=== PATIENT | male | born 1930 | race Caucasian/White ===

== ENCOUNTER 2018-10-01 22:23 | Inpatient (IN) | payer MEDICARE, OTHER ==
[2018-10-01] MEDS ORDERED: Aspirin 81 mg CHEW TAB* 81 MG TAB.CHEW PO ONE (22:52)
[2018-10-01] MEDS ORDERED: fentaNYL* 50 MCG/ML 2 ML VIAL (100 MCG VIAL) IV ONE (22:52)
[2018-10-01] MEDS ORDERED: Nitro 2% OINT* (Nitroglycerin) 1 INCH/PAK PAK TOPICAL ONE (22:52)
--- NOTE | 2018-10-01 22:54 | ED ---
HPI Chest Pain - HPI Summary HPI Summary: Patient is a 88 y/o M presenting to ED with complaints of sudden onset and constant chest pain today, 10/01/18, just before 1900. He notes that exertion aggravates chest pain, rest completely alleviates Sx. He notes that he had some difficulty with his typical daily activities today and notes that he did not have this difficulty earlier this week. When chest pain onset today, he sat down and rested. However, chest pain persisted, which led to the patient coming to ED. Pain is still present, chest pain is described as diffuse and as a pressure. Family claims that the patient never had KS and has never had cardiac catheterization. PMHx of Parkinson's disease, AAA, pacemaker. He is a non-smoker , denies Hx of HTN and diabetes. He rates pain 9.5/10. On triage, nothing is noted to aggravate/alleviate Sx. Home medications and allergies are reviewed. - History of Current Complaint Chief Complaint: EDChestPainROMI Time Seen by Provider: 10/01/18 22:43 Hx Obtained From: Patient, Family/Paper Bundler Onset/Duration: Started Hours Ago, Still Present Timing: Constant, Lasting Hours Current Severity: Severe Pain Intensity: 10 Pain Scale Used: 0-10 Numeric Chest Pain Location: Diffuse Character: Pressure/Squeezing Aggravating Factor(s): Nothing Alleviating Factor(s): Nothing Associated Signs and Symptoms: Positive: Chest Pain. Negative: Fever - on vitals, temp is 98.3 F - Allergy/Home Medications Allergies/Adverse Reactions: Allergies Allergy/AdvReac Type Severity Reaction Status Date / Time No Known Allergies Allergy Verified 10/29/12 16:24 Home Medications: Home Medications Amantadine CAP* [Symmetrel CAP*] 100 mg PO 0800,1500 10/01/18 [History Confirmed 10/02/18] Carbidopa/Levodop CR 50/200(*) [Sinemet CR 50/200(*)] 1 tab.cr PO 199910/01/18 [History Confirmed 10/02/18] Docusate Sodium [Colace] 100 mg PO DAILY 10/01/18 [History Confirmed 10/01/18] Gabapentin CAP(*) [Neurontin 300 CAP(*)] 300 mg PO 0730,1400,2100 10/01/18 [ History Confirmed 10/02/18] Metoprolol Tartrate [Lopressor] 50 mg PO BID 10/01/18 [History Confirmed ] Acetaminophen [Tylenol] 650 mg PO 2100 10/02/18 [History Confirmed 10/02/18] PMH/Surg Hx/FS Hx/Imm Hx Cardiovascular History: Reports: Hx Aneurysm - AAA, Hx Pacemaker/ICD Neurological History: Reports: Other Neuro Impairments/Disorders - Parkinson's - Immunization History Date of Tetanus Vaccine: UNKNOWN Infectious Disease History: No Infectious Disease History: Denies: Traveled Outside the [place] in Last 30 Days - Family History Known Family History: Positive: Diabetes - Social History Alcohol Use: None Substance Use Type: Reports: None Smoking Status (MU): Former Smoker Review of Systems Negative: Fever - on vitals, temp is 98.3 F Positive: Chest Pain All Other Systems Reviewed And Are Negative: Yes Physical Exam - Summary Physical Exam Summary: Appearance: Well-appearing, Well-nourished, lying in bed comfortably, no acute distress Skin: Warm, dry, no obvious rash; pacemaker noted Eyes: sclera anicteric, no conjunctival pallor ENT: mucous membranes moist, pharynx appears normal Neck: Supple, nontender Respiratory: Clear to auscultation, no signs of respiratory distress Cardiovascular: Normal S1, S2. No murmurs. Normal distal pulses in tibial and radial bilaterally. Abdomen: Soft, nontender, normal active bowel sounds present Musculoskeletal: Normal, Strength/ROM Intact, no edema. Neurological: A&Ox3, awake and alert, mentation is normal, speech is fluent and appropriate Psychiatric: affect is normal, does not appear anxious or depressed Triage Information Reviewed: Yes Vital Signs On Initial Exam: Initial Vitals Temp Pulse Resp BP Pulse Ox 98.3 F 82 24 163/97 90 10/01/18 22:25 10/01/18 22:25 10/01/18 22:25 10/01/18 22:25 10/01/18 22:25 Vital Signs Reviewed: Yes Diagnostics - Vital Signs Vital Signs Temp Pulse Resp BP Pulse Ox 10/01/18 22:25 98.3 F 82 24 163/97 90 - Laboratory Result Diagrams: 10/04/18 06:31 10/04/18 06:31 Lab Statement: Any lab studies that have been ordered have been reviewed, and results considered in the medical decision making process. - Radiology CXR Radiology Interpretation Completed By: ED Physician Summary of Radiographic Findings: CXR showed no acute process, pending official report. - EKG 2335 Cardiac Rate: Other Rate - atrial paced rhythm with rate of 82 BPM Summary of EKG Findings: EKG showed atrial paced rhythm with rate of 82 BPM. Re-Evaluation - Re-Evaluation First Eval Re-Evaluation Time: 23:44 Comment: Aware of trop of 0.83. Second Eval Re-Evaluation Time: 00:59 Comment: Aware of trop of 3.74 Chest Pain Course/Dx - Course Course Of Treatment: Patient is a 88 y/o M presenting to ED with complaints of sudden onset and constant chest pain today, 10/01/18, just before 1900. He notes that exertion aggravates chest pain, rest completely alleviates Sx. He notes that he had some difficulty with his typical daily activities today and notes that he did not have this difficulty earlier this week. When chest pain onset today, he sat down and rested. However, chest pain persisted, which led to the patient coming to ED. Pain is still present, chest pain is described as diffuse and as a pressure. Family claims that the patient never had KS and has never had cardiac catheterization. PMHx of Parkinson's disease, AAA, pacemaker. He is a non-smoker, denies Hx of HTN and diabetes. EKG showed atrial paced rhythm with rate of 82 BPM. CXR showed no acute process. Labs showed WBC 11, MCV 100, MCH 33, RDW 16, absolute neuts 9.5, BUN 28, creatinine 1.19, BUN/creatinine ratio 23.5, glucose 137, ALT < 3. First trop 0.83, second 3.74. During ED course, patient received nitro paste 1 inch, ASA 324 ,g PO, fentanyl 50 mcg IV, heparin vial, 4000 units, heparin drip, [id number] units, 20 mls/hr. 0112 - Patient 's case was discussed with Dr. Palencia, Dr. Palencia asks for boom worker consult and will consult on patient. 0118 - Dr. Foster, boom worker, was consulted, he recommends homicide squad captain consult. 0141 - patient case discussed with Dr. Oneill, Dr. Oneill will send cath team and bring patient to laborer steel handling. - Diagnoses Provider Diagnoses: NSTEMI (non-ST elevated myocardial infarction) - Provider Notifications Discussed Care Of Patient With: Sejal Palencia Time Discussed With Above Provider: 01:12 Instructed by Provider To: Other - 0112 - Patient's case was discussed with Dr. Palencia, Dr. Palencia asks for boom worker consult and will consult on patient. 0118 - Dr. Foster, boom worker, was consulted, he recommends homicide squad captain consult. 0141 - patient case discussed with Dr. Oneill, Dr. Oneill will send cath team and bring patient to laborer steel handling. - Critical Care Time Critical Care Time: 75-104 min Discharge - Sign-Out/Discharge Documenting (check all that apply): Patient Departure - admit Patient Received Moderate/Deep Sedation with Procedure: No - Discharge Plan Condition: Guarded Disposition: ADMITTED TO [facility] - Billing Disposition and Condition Condition: GUARDED Disposition: Admitted to [facility] - Attestation Statements Document Initiated by Gus: Yes Documenting Scribe: SONAM ESPINO Provider For Whom Gus is Documenting (Include Credential): REYMUNDO WANG MD Scribe Attestation: SONAM Acuna, scribed for REYMUNDO WANG MD on 10/05/18 at 0755. Scribe Documentation Reviewed: Yes Provider Attestation: The documentation as recorded by the SONAM casarez accurately reflects the service I personally performed and the decisions made by me, REYMUNDO WANG MD Status of Scribe Document: Viewed
[2018-10-01 23:24] LABS: ABS Monocytes 0.4 10^3/ul (0-0.8); ABS Neutrophils 9.5 10^3/ul (1.5-7.7); Eosinophil % 0.4 %; Hematocrit 47 % (42-52); Hemoglobin 15.4 g/dL (14.0-18.0); Lymphocyte % 8.7 %; Mean Corpuscular HGB Conc 33 g/dL (31-36); Mean Corpuscular Hemoglobin 33 pg (27-31); Mean Corpuscular Volume 100 fL (80-94); Mean Platelet Volume 7.7 fL (7.4-10.4); Platelet Count 152 10^3/uL (150-450); Red Cell Distribution Width 16 % (10-15)
[2018-10-01 23:36] LABS: ALT < 3 U/L (7-52); AST 25 U/L (13-39); Albumin/Globulin Ratio 1.2 (1-3); Alkaline Phosphatase 90 U/L (34-104); Anion Gap 9 mmol/L (2-11); BUN/Creatinine Ratio 23.5 (8-20); Blood Urea Nitrogen 28 mg/dL (6-24); CO2 Carbon Dioxide 28 mmol/L (22-32); Calcium 9.6 mg/dL (8.6-10.3); Chloride 106 mmol/L (101-111); EGFR African American 70.1 (>60); Globulin 3.4 g/dL (2-4); Glucose 137 mg/dL (70-100); Potassium 4.4 mmol/L (3.5-5.0); Sodium 143 mmol/L (135-145); Total Protein 7.4 g/dL (6.4-8.9)
[2018-10-01 23:44] LABS: Troponin I 0.83 ng/mL (<0.04)
[2018-10-01] MEDS ORDERED: Heparin DRIP 25,000 UNITS(*) 25,000 UNITS/500 ML BAG IV SCH (23:45)
[2018-10-01] MEDS ORDERED: nitroGLYCERIN DRIP* 25,000 MCG/250 ML BTL IV ONE (23:52)
[2018-10-02] MEDS ORDERED: Heparin VIAL(*) 5000 UNITS/ML VIAL (FIVE THOUSAND) IV SCH (00:15)
[2018-10-02] MEDS: fentaNYL* 50 MCG/ML 2 ML VIAL (100 MCG VIAL) IV PRN ×2 (00:40→06:13)
[2018-10-02 00:56] LABS: Troponin I 3.74 ng/mL (<0.04)
[2018-10-02] MEDS ORDERED: LORazepam TAB(*) 0.5 MG PO PRN (01:45)
[2018-10-02] MEDS ORDERED: NS 0.9% 1000 ML** 1,000 ML IV SCH ×2 (02:00→04:15)
[2018-10-02] MEDS ORDERED: nitroGLYCERIN DRIP* 25,000 MCG/250 ML BTL ONE (02:13)
[2018-10-02] MEDS ORDERED: Lidocaine 1% INJ* 10 MG/ML 30 ML SDV ONE (02:13)
[2018-10-02] MEDS ORDERED: Heparin 2 UNITS/ML IVPREMIX* 3,000 UNIT/1,500 ML BAG IV ONE (02:14)
[2018-10-02] MEDS ORDERED: Heparin(*) 1000 UNIT/ML 10 ML VIAL CATH LAB IV ONE (02:14)
[2018-10-02] MEDS ORDERED: Iodixanol 320 (CONTRAST) 100 ML SDV ONE ×2 (02:15→03:46)
[2018-10-02] MEDS ORDERED: Midazolam* 1 MG/ML 5 ML VIAL (5 MG) ONE (02:25)
[2018-10-02] MEDS ORDERED: VERAPAMIL 2.5 MG/ML 2 ML VIAL ** 5 mg/2 ml ONE (02:25)
[2018-10-02] MEDS ORDERED: fentaNYL* 50 MCG/ML 2 ML VIAL (100 MCG VIAL) ONE (02:25)
[2018-10-02 02:33] LABS: Cholesterol 128 mg/dL; HDL Cholesterol 29.6 mg/dL; LDL Cholesterol 69 mg/dL; Triglycerides 148 mg/dL
[2018-10-02] MEDS ORDERED: Bivalirudin(*) 250 MG VIAL ONE (03:24)
[2018-10-02] MEDS ORDERED: Ticagrelor* 90 MG TAB PO ONE (03:24)
[2018-10-02] MEDS ORDERED: Nitroglycerin TAB 0.4 MG* 0.4 MG TAB SL PRN (04:07)
[2018-10-02] MEDS ORDERED: Atorvastatin* 80 MG TAB PO ONE ×2 (04:19→21:00)
--- NOTE | 2018-10-02 05:42 | HP ---
CC: Chhaya Loyd NP * HISTORY AND PHYSICAL: DATE OF ADMISSION: 10/02/18 PRIMARY CARE PROVIDER: Chhaya Loyd NP. CHIEF COMPLAINT: Chest pain. HISTORY OF PRESENT ILLNESS: Mr. Smith is an 88-year-old vague historian who states that he developed chest pressure beginning initially he stated at around 4 p.m. but his daughter corrected him and stated that he told her chest pain began shortly before she arrived to his house which was around 6:45 p.m. The patient states that the chest pain is still present. He again described this as a pressure sensation in the middle of his chest. He states typically he will get chest discomfort with exertion; however, if he sits down, the pain will go away. At this time, the pain did not go away. The patient because of the ongoing pain and lack of relief with different measures tried at home presented to the emergency room for evaluation. The patient denies any associated shortness of breath or diaphoresis, and there was no radiation of the pain. The pain is still present between a 7 and 8/10 despite being on a nitroglycerin infusion. PAST MEDICAL HISTORY: 1. Hypertension. 2. Parkinson disease. 3. Peripheral neuropathy. 4. Anxiety. 5. Hypertension. PAST SURGICAL HISTORY: 1. Bilateral cataract extraction. 2. Right carpal tunnel release. 3. Left inguinal hernia repair. 4. Partial colectomy for a history of colon cancer. 5. Pacemaker insertion. MEDICATIONS: 1. Ativan 0.5 mg p.o. q.h.s. p.r.n. anxiety. 2. Tylenol 650 mg p.o. at 2100. 3. Gabapentin 300 mg p.o. 3 times daily. 4. Amantadine 100 mg p.o. twice daily. 5. Carbidopa/levodopa CR 50/200 one tab p.o. at 2000. 6. Sinemet 25/100 two tabs p.o. at 0930, 1330, and 1730. 7. Colace 100 mg p.o. daily. 8. Metoprolol tartrate 50 mg p.o. twice daily. 9. Nitroglycerin patch applied topically daily. ALLERGIES: No known drug allergies. FAMILY HISTORY: Mom had a history of diabetes. Dad's history is unknown. SOCIAL HISTORY: The patient is a former smoker of approximately one-half pack per day for 15 years, he quit in 1974. He does not drink alcohol. He worked at an [employer] plant. He is . He has 5 children. His daughter Josephine is listed as his healthcare proxy. REVIEW OF SYSTEMS: A complete 11-system review of systems is obtained. Pertinent positives and negatives are as per HPI. In addition, the patient does state that he has had cold symptoms over the last couple of weeks. He has had a cough but no shortness of breath. He denies any hematochezia or hematuria. He does have chronic double vision. The rest of the review of systems is negative. PHYSICAL EXAMINATION GENERAL: The patient is a well-developed, elderly male seen sitting up in stretcher, appearing to be in no acute distress. VITAL SIGNS: Blood pressure 134/75, pulse 82, respirations 24, temp 98.3, O2 sat 93% on room air. HEENT: Pupils are equal. There is evidence of prior cataract extraction. Extraocular muscles are intact. Oropharynx is clear. Oral mucosa is moist. There is no submandibular, cervical, or supraclavicular adenopathy. Thyroid is not enlarged. No thyroid nodules noted. PULMONARY: Lungs are clear to auscultation bilaterally. CARDIAC: Normal S1 and S2. Regular rate and rhythm. I do not appreciate any murmurs. There is 1+ bilateral lower extremity pitting edema. ABDOMEN: Bowel sounds present. Abdomen is soft, nontender, nondistended. MUSCULOSKELETAL: There is no cyanosis or clubbing of the digits. The patient needs help sitting up in the bed. Skin is warm and dry. There are no rashes. NEURO: Cranial nerves II through XII appear to be grossly intact, though I do question left droop at the corner of the mouth. The patient's daughter states, however, he looks at his baseline. Strength is 5/5 and symmetric to both upper and lower extremities bilaterally. Sensation is intact to light touch throughout. PSYCH: The patient is alert. He is oriented x3. He is a poor historian. DIAGNOSTIC STUDIES/LAB DATA: WBC 11.0, hemoglobin 15.4, hematocrit 47, platelets 152. PTT 36. Sodium 143, potassium 4.4, chloride 106, CO2 28, BUN 28 , creatinine 1.19, glucose 137, calcium 9.6. Bilirubin 0.7, AST 25, ALT less than 3, alk phos 90. Troponin 0.83 up to 3.74. Albumin 4.0. EKG reveals a paced rhythm. Chest x-ray to my interpretation reveals possible patchy infiltrates at the bases bilaterally. ASSESSMENT AND PLAN: Mr. Smith is an 88-year-old male with a history of hypertension and Parkinson disease as well as peripheral neuropathy, who presented to the emergency room with complaints of exertional chest pain that did not relieve with rest like it typically does, who is being admitted for a non-ST elevation myocardial infarction. 1. Non-ST elevation myocardial infarction. At this point, the patient continues to have ongoing chest pressure. He rates it as 7/10 despite being on a nitroglycerin infusion. The patient is also on a heparin drip started by the ER provider. He has received aspirin 324 mg, fentanyl, and nitroglycerin. Cardiology was contacted by Dr. Ray in the ER. Dr. Sae Foster recommended that Dr. Oneill be contacted for possible intervention this evening. Dr. Oneill has since been contacted by Dr. Ray. Dr. Oneill is calling in the cardiac catheterization team to pursue intervention this evening. The patient will continue with aspirin 81 mg daily, and I am going to add Lipitor 80 mg q.h.s. He is already on metoprolol 50 mg twice daily. We will be obtaining a transthoracic echocardiogram on 10/03/18. He may benefit from low-dose HUMBERTO inhibitor. I will add on a lipid profile to labs obtained in the ER, and I will add hemoglobin A1c. We will await further recommendations from Dr. Oneill when he arrives. 2. Hypertension. The patient's blood pressure has been under decent control on the nitroglycerin infusion; however, when he arrived, his blood pressure was moderately elevated. He will need adjustments in his antihypertensive regimen post catheterization. 3. Parkinson disease. The patient will continue on his usual regimen of amantadine twice daily, Sinemet 4 times daily including a long-acting dose at bedtime. 4. Peripheral neuropathy. Continue gabapentin. 5. Stage 3 chronic kidney disease. The patient's creatinine is slightly elevated at 1.19. This is appearing to be baseline. Labs dating back to 2014 revealed his creatinine to be elevated in this range. 6. DVT prophylaxis: According to the adult thrombosis prophylaxis risk factor assessment guide, the patient has a total risk factor score of 6 making him the highest risk. He is on a heparin drip and this will act as his DVT prophylaxis. 7. Code status is DNR. The patient understands that he will need to rescind his DNR to pursue cardiac catheterization. Of note, the patient is a Yarsanism. This information has been relayed to Dr. Oneill. TIME SPENT: 65 minutes was spent admitting this patient. [id number]/CPS #: [id number] [facility]
[2018-10-02 06:43] LABS: ABS Eosinophils 0.1 10^3/ul (0-0.6); ABS Lymphocytes 1.3 10^3/ul (1.0-4.8); ABS Monocytes 0.7 10^3/ul (0-0.8); ABS Neutrophils 7.6 10^3/ul (1.5-7.7); Eosinophil % 0.6 %; Hematocrit 43 % (42-52); Hemoglobin 14.7 g/dL (14.0-18.0); Lymphocyte % 13.8 %; Mean Corpuscular HGB Conc 34 g/dL (31-36); Mean Corpuscular Hemoglobin 34 pg (27-31); Mean Corpuscular Volume 98 fL (80-94); Nucleated Red Blood Cells % 0.1; Platelet Count 155 10^3/uL (150-450); Red Blood Count 4.39 10^6 /uL (4.18-5.48); Red Cell Distribution Width 16 % (10-15); White Blood Count 9.7 10^3/uL (3.5-10.8)
[2018-10-02] MEDS: Nitroglycerin 0.3 MG/HR PATCH* (7.5 MG) TRANSDERM SCH ×2 (06:52→08:30)
[2018-10-02 07:06] LABS: ALT 6 U/L (7-52); AST 193 U/L (13-39); Albumin 3.7 g/dL (3.2-5.2); Albumin/Globulin Ratio 1.2 (1-3); Alkaline Phosphatase 85 U/L (34-104); Anion Gap 9 mmol/L (2-11); BUN/Creatinine Ratio 25.8 (8-20); Blood Urea Nitrogen 24 mg/dL (6-24); CO2 Carbon Dioxide 28 mmol/L (22-32); Calcium 9.3 mg/dL (8.6-10.3); Chloride 106 mmol/L (101-111); EGFR African American 93.2 (>60); Globulin 3.2 g/dL (2-4); Glucose 116 mg/dL (70-100); Potassium 3.8 mmol/L (3.5-5.0); Sodium 143 mmol/L (135-145); Total Protein 6.9 g/dL (6.4-8.9)
[2018-10-02 07:10] LABS: CKMB ng/mL > 304.0 ng/mL (0.6-6.3); Troponin I > 79.00 ng/mL (<0.04)
[2018-10-02] MEDS: Metoprolol Tartrate TAB* 50 mg PO SCH ×2 (08:30→21:09)
[2018-10-02] MEDS: Gabapentin CAP(*) 300 MG PO SCH ×2 (08:30→21:07)
[2018-10-02] MEDS: Docusate CAP* 100 MG PO SCH (08:30)
[2018-10-02] MEDS: Aspirin 81 mg CHEW TAB* 81 MG TAB.CHEW PO SCH (08:30)
[2018-10-02] MEDS: Amantadine CAP* 100 MG PO SCH ×2 (08:31→17:09)
[2018-10-02] MEDS: Carbidopa/Levodop 25/100 MG TAB(*) PO SCH ×3 (08:32→17:09)
[2018-10-02 08:51] LABS: Creatine Kinase 2763 U/L (10-223)
--- NOTE | 2018-10-02 09:04 | PN ---
Cardiology Progress Note Date of Service: 10/02/18 attention coders please do not bill for this encounter Limited bedside echo Dr. Oneill present shows mild LV systolic dysfunction with posterior predominant WMA Full echo 10/03/2018
[2018-10-02 09:10] LABS: CKMB ng/mL 102.6 ng/mL (0.6-6.3)
[2018-10-02 09:14] LABS: Creatine Kinase 318 U/L (10-223)
[2018-10-02 09:14] LABS: Creatine Kinase 801 U/L (10-223)
[2018-10-02 09:18] LABS: CKMB ng/mL 31.3 ng/mL (0.6-6.3)
--- NOTE | 2018-10-02 09:58 | PN ---
Subjective Date of Service: 10/02/18 Interval History: seen this morning in ICU post cardiac cath secondary to Non-Q-MT with elevated troponin and chest pain. S/p bare-metal stent to his Left circumflex. currently chest pain free, but complains of chest wall tenderness left sided. BP was elevated 211/100 earlier and was started on lopressor 50mg bid and captopril 6.25 tid. Brilinta on board. he denies any headache , no abdominal pain Past Medical History: Unchanged from Admission Objective Active Medications: Acetaminophen (Tylenol Tab*) 650 mg PO 2100 [facility] Amantadine HCl (Symmetrel Cap*) 100 mg PO 0800,1500 [facility] Last Admin: 10/02/18 08:31 Dose: 100 mg Aspirin (Aspirin 81 Mg Chew Tab*) 81 mg PO DAILY [facility] Last Admin: 10/02/18 08:30 Dose: 81 mg Atorvastatin Calcium (Lipitor*) 80 mg PO 1700 [facility] Captopril (Capoten Tab*) 6.25 mg PO TID [facility] Carbidopa/Levodopa (Sinemet 25/100 Tab(*)) 2 tab PO 0930,1330,1730 [facility] Last Admin: 10/02/18 08:32 Dose: 2 tab Carbidopa/Levodopa (Sinemet Cr 50/200(*)) 1 tab.cr PO 2000 [facility] Docusate Sodium (Colace Cap*) 100 mg PO DAILY [facility] Last Admin: 10/02/18 08:30 Dose: 100 mg Fentanyl Citrate (Fentanyl*) 50 mcg IV Q1H PRN PRN Reason: PAIN Last Admin: 10/02/18 06:13 Dose: 50 mcg Gabapentin (Neurontin Cap(*)) 300 mg PO 0730,2100 [facility] Last Admin: 10/02/18 08:30 Dose: 300 mg Heparin Sodium (Porcine) (Heparin Vial(*)) 0 units IV .PER PROTOCOL [facility] Last Admin: 10/02/18 00:47 Dose: 4,000 units Sodium Chloride (Ns 0.9% 1000 Ml) 1,000 mls @ 75 mls/hr IV PER RATE [facility] Last Admin: 10/02/18 04:43 Dose: 75 mls/hr Sodium Chloride (Ns 0.9% 1000 Ml) 1,000 mls @ 100 mls/hr IV PER RATE [facility] Stop: 10/02/18 14:14 Lorazepam (Ativan Tab(*)) 0.5 mg PO BEDTIME PRN PRN Reason: ANXIETY Metoprolol Tartrate (Lopressor Tab*) 50 mg PO BID [facility] Last Admin: 10/02/18 08:30 Dose: 50 mg Nitroglycerin (Nitroglycerin 7.5 Mg Patch*) 1 patch TRANSDERM DAILY [facility] Last Admin: 10/02/18 08:30 Dose: Not Given Nitroglycerin (Nitroglycerin Tab 0.4 Mg*) 0.4 mg SL Q5M PRN PRN Reason: ANGINA Ticagrelor (Brilinta*) 90 mg PO BID [facility] Vital Signs - 8 hr 10/02/18 10/02/18 10/02/18 02:00 02:06 02:21 Temperature Pulse Rate 72 67 77 Respiratory 16 14 23 Rate Blood Pressure 111/72 129/66 (mmHg) O2 Sat by Pulse 92 93 93 Oximetry 10/02/18 10/02/18 10/02/18 02:36 04:24 04:26 Temperature Pulse Rate 81 92 Respiratory 22 Rate Blood Pressure 115/71 144/81 (mmHg) O2 Sat by Pulse 92 94 Oximetry 10/02/18 10/02/18 10/02/18 04:31 04:36 04:46 Temperature 98.9 F Pulse Rate 83 79 Respiratory 23 21 17 Rate Blood Pressure 158/100 158/100 126/75 (mmHg) O2 Sat by Pulse 98 94 Oximetry 10/02/18 10/02/18 10/02/18 05:00 05:01 05:17 Temperature Pulse Rate 80 85 86 Respiratory 18 20 17 Rate Blood Pressure 145/89 141/75 (mmHg) O2 Sat by Pulse 94 93 93 Oximetry 10/02/18 10/02/18 10/02/18 05:31 05:46 06:00 Temperature Pulse Rate 81 92 83 Respiratory 18 20 19 Rate Blood Pressure 121/83 132/79 127/80 (mmHg) O2 Sat by Pulse 93 92 92 Oximetry 10/02/18 10/02/18 10/02/18 06:06 06:11 06:13 Temperature Pulse Rate 85 87 Respiratory 17 18 22 Rate Blood Pressure 185/90 172/93 (mmHg) O2 Sat by Pulse 91 90 Oximetry 10/02/18 10/02/18 10/02/18 06:30 07:00 07:02 Temperature Pulse Rate 85 90 96 Respiratory 17 17 18 Rate Blood Pressure 165/90 211/100 (mmHg) O2 Sat by Pulse 91 98 98 Oximetry 10/02/18 10/02/18 10/02/18 07:04 07:28 07:37 Temperature 99.9 F Pulse Rate 90 Respiratory 21 19 Rate Blood Pressure 150/86 (mmHg) O2 Sat by Pulse 97 Oximetry 10/02/18 10/02/18 10/02/18 07:41 08:00 08:01 Temperature Pulse Rate 95 95 Respiratory 20 17 16 Rate Blood Pressure 157/92 (mmHg) O2 Sat by Pulse 92 92 Oximetry Oxygen Devices in Use Now: Nasal Cannula Appearance: awake. alert. no distress. Eyes: No Scleral Icterus, - Ears/Nose/Mouth/Throat: Clear Oropharnyx, Mucous Membranes Moist Neck: NL Appearance and Movements; NL JVP, Trachea Midline Respiratory: Symmetrical Chest Expansion and Respiratory Effort, - - bibasilar crackles. transmitted upper airway breath sound cleared with coughing Cardiovascular: NL Sounds; No Murmurs; No JVD, No Edema Abdominal: NL Sounds; No Tenderness; No Distention Extremities: No Edema Neurological: Alert and Oriented x 3, NL Muscle Strength and Tone Result Diagrams: 10/02/18 06:19 10/02/18 06:19 Microbiology and Other Data: Microbiology 10/02/18 04:40 Nasal Screen MRSA (PCR) - Final Nasal Mrsa Not Detected Assess/Plan/Problems-Billing Assessment: 88 y/o male known history of AAA (patient opted to stop following and declined surgery); Parkinson, Pacemaker, admitted for chest pain and NQMI s/p bare-metal stent to his left circumflex. - Patient Problems (1) Non-ST elevated myocardial infarction (non-STEMI) Current Visit: Yes Status: Acute Code(s): I21.4 - NON-ST ELEVATION (NSTEMI) MYOCARDIAL INFARCTION SNOMED Code(s): 12911282 Comment: - s/p cardiac cath 10/01/18 with baremetal stent to left circumflex - Offical cath report pending - on lopressor 50 mg bid, brilinta 90 mg bid, Aspirin 81 mg daily, lipitor 80 mg HS, captopril 6.25 mg tid (2) CAD (coronary artery disease) Current Visit: Yes Status: Acute Code(s): I25.10 - ATHSCL HEART DISEASE OF [place] CORONARY ARTERY W/O ANG PCTRS SNOMED Code(s): 48153914 Comment: - s/p cardiac cath 10/01/18 with baremetal stent to left circumflex - Offical cath report pending - on lopressor 50 mg bid, brilinta 90 mg bid, Aspirin 81 mg daily, lipitor 80 mg HS, captopril 6.25 mg tid- s/p cardiac cath 10/01/18 with baremetal stent to his left circumflex (3) Parkinson disease Current Visit: Yes Status: Acute Code(s): G20 - PARKINSON'S DISEASE SNOMED Code(s): 72804175 Comment: - continue amantadine 100 mg bid - Continue sinemet 25/100 2 tabs tid and 1 tab at bedtime (4) AAA (abdominal aortic aneurysm) Current Visit: Yes Status: Acute Code(s): I71.4 - ABDOMINAL AORTIC ANEURYSM , WITHOUT RUPTURE SNOMED Code(s): 481274536 Comment: - Last available scan from [facility] reviewed > 6cm from 2017 - He was scheduled for intravascular repair, however, the patient elected not to pursue repair and declined further imaging as he does not want it to be repaired - I revisisted with him this morning the risk of rupture and sudden and he is fully aware and response was "it goes when it goes, I am 88 year old...I had a latasha who had it done and did not make it..." Will defer any further work up (5) Hypertension Current Visit: Yes Status: Acute Code(s): I10 - ESSENTIAL (PRIMARY) HYPERTENSION SNOMED Code(s): 47035786 Comment: - BP was as high as 211/100. - Aggressive BP control required espescially with his NQMI and AAA - Cardiology already initiated lopressor 50 mg bid and captopril 6.25 mg tid. - Will reassess early afternoon if remains above 140 mmHg SBP or above 90 mmHg DBP will titrate either metoprolol or captopril pending his pulse at that time (6) DVT prophylaxis Current Visit: Yes Status: Acute Code(s): Z29.9 - ENCOUNTER FOR PROPHYLACTIC MEASURES, UNSPECIFIED SNOMED Code(s): 820983630 Comment: - SCD, heparin SQ once off the drip
[2018-10-02] MEDS: Captopril TAB* 12.5 MG PO SCH ×3 (10:16→21:07)
[2018-10-02] MEDS ORDERED: oxyCODONE TAB* 5 MG TAB PO PRN (10:50)
--- NOTE | 2018-10-02 11:48 | CATH ---
CC: Chhaya Loyd NP, [facility] in [place], [place]; Anthony Alejandre, cardiac nurse practitioner, at the Department of Cardiology at [facility] CARDIAC CATHETERIZATION INTERVENTIONAL REPORT: DATE OF PROCEDURE: 10/02/18 FAMILY NURSE PRACTITIONER: Chhaya Loyd NP CARDIAC NURSE PRACTITIONER: Anthony Alejandre. INDICATIONS FOR PROCEDURE: The patient with ongoing chest discomfort with rising troponins, assess coronary anatomy with acute coronary syndrome for possibility of intervention. PROCEDURE: Coronary arteriography and balloon angioplasty and placement of a 2.75 x 20 mm Rebel bare metal stent in proximal to mid circumflex artery, post dilated to 2.85 - 2.9 mm, performed via right radial artery approach. CONSENT: The patient was interviewed and examined in the emergency room with family present. An extensive discussion was had with the emergency room physician in addition to Dr. Sejal Palencia who is the hospitalist taking care of the patient as well as the patient and the family. The patient is a Jehovah' s witness and stated that he would not take blood, but according to the family he does take other blood products such as platelets. He is adamant that he will not take any transfusions. He also has a DNR status that Dr. Ray, the emergency room physician had discussed with them and they initially felt they would reverse it for the procedure. I explained that we need to reverse it for more than the procedure, but clearly during the whole hospital course so that we could take care of him properly should any complications develop. They understood this and had a more of a discussion and decided that they would rescind the DNR status at this point. He was made a full code. The patient understood that we would be doing all efforts to help him if any significant issues arise. The approach utilized. The right radial artery was assessed by ultrasound in the pharmaceutical laboratory technician and felt to be acceptable as an approach given the size of it. As such, the approach attempted was from the right radial artery. The precardiac catheterization laboratory results: Hemoglobin and hematocrit of 15.4 and 47 with a platelet count of 152,000. BUN and creatinine is 28 and 1.1. Sodium 143, potassium 4.4, chloride 106, bicarb 28, troponin was 3.74. EQUIPMENT UTILIZED FOR THE CASE: 1. Right radial artery sheath was a 6-Turkish slender glide sheath. 2. The diagnostic guidewires utilized were both a Barnhart 260 length curve and a Wholey wire 145 cm length. 3. Diagnostic coronary catheter was a 5-Turkish TIG4 catheter. 4. The guiding catheter utilized was a VL3.5 curve 6-Turkish guide catheter. 5. The interventional wire was a 190 cm length BMW guidewire. 6. An initial balloon angioplasty catheter - was a 2.5 x 15 mm Long Emerge balloon and the stent utilized was a 2.75 x 20 mm Rebel bare-metal stent. 7. Post stent deployment balloon inflation catheter - was a 2.75 x 12 mm long NC Emerge balloon. 8. The closure device utilized was a Vasc Band by [employer]. MEDICATIONS GIVEN DURING THE PROCEDURE: In the emergency room, the patient had received 4000 units of heparin intravenously and a heparin drip had already been on for at least an hour prior to coming to the catheterization laboratory. A right radial artery cocktail was utilized with 300 mcg of nitroglycerin and 3 mg of verapamil. 1% lidocaine was used locally and the patient received Brilinta 180 mg orally. The patient was also on a nitroglycerin drip as well from the emergency room (he had also received several medications for pain management, please refer to the emergency room records for this). PROCEDURE: The patient was brought to the cardiovascular laboratory where a formal timeout was performed. He was prepped and draped in the usual sterile fashion under ultrasound guidance. The right radial artery was cannulated and the guidewire was placed and the sheath was placed. Of note, a Wholey wire was utilized to traverse the forearm at the elbow area and of note there was found to be marked tortuosity of the right subclavian artery into the innominate artery. Of note, it was difficult negotiating this, but eventually the Wholey wire negotiated it and we were able to advance to TIG catheter. Of note, in order to cannulate the coronary arteries intermittently, the guidewire was kept within the diagnostic catheter in order to avoid any kinking of the artery. Following this, the decision was made to attempt intervention into the circumflex artery. This existing diagnostic catheter was exchanged for the guide catheter. Of note, once again given the tortuosity, it was somewhat difficult and the catheter was advanced with extreme caution with the tortuosity with the wire kept in place and eventually straightening out to some degree the artery. The catheter was able to be placed in an excellent position with a guide catheter support in the left main. Following this, the guidewire was advanced down the circumflex artery and balloon angioplasty was performed followed by delivery of the sent. Post deployment, balloon inflations were made with a 2.75 x 12 mm long NC Emerge balloon dilated to as high as 26 atmospheres. Given the significant tortuosity with difficulty negotiating catheters, a decision was made not to perform left heart catheterization, but perform an echocardiogram for overall LV function. Following this, the artery was assessed and the wires were removed and the catheter was removed and the sheath was removed and hemostasis was obtained with a Vasc Band. The reverse Barbeau was a B. The total contrast used was a 150 cc Visipaque dye. The radiation exposure included 22 minutes of fluoro time. The air kerma radiation was 2671 mGy. The DAP radiation was 16,132 microgray/m2. RESULTS: CORONARY ARTERIOGRAPHY: A. Left coronary artery: 1. Left main - of note the ostium of the left main had a 10% to 15% narrowing noted. The distal left main had a 10% narrowing noted. 2. Left anterior descending artery - left anterior descending artery supplied a high first diagonal branch, followed by a mid-diagonal branch. The LAD itself had calcification seen within the proximal portion which did extended back into the distal left main. The proximal LAD itself in its worst view had an area of 35% to 40% narrowing. The first diagonal branch had a proximal long area of 50% to 55% narrowing noted. The continuation of the LAD had mild to moderate disease in its mid portion with RUSTY-3 flow. The mid diagonal branch had mild luminal irregularities within it as well, but RUSTY-3 flow was noted. 3. Circumflex artery - a nondominant vessel supplying a small caliber first obtuse marginal branch, thread-like in nature, traversing a small area of myocardium. Following this was a critical dissected 95% to 99% lesion seen with RUSTY-2.5 to 3 flow. This supplied a low-lying obtuse marginal branch with a superior branch, which was thread-like in nature followed by bifurcation in its distal portion. At that distal point, the artery is clearly extremely small in caliber. B. Right coronary artery - a dominant vessel supplying the PDA and 2 posterior left ventricular branches. There was mild luminal irregularity seen in the proximal portion. The PDA itself trifurcated in its distal portion to supply blood flow to the apical region of the left ventricle and the apical low- posterolateral region. Of note, the PDA itself had mild distal disease noted with areas of luminal reduction proximally 40% and 35%. INTERVENTION INTO PROXIMAL TO MID CIRCUMFLEX ARTERY: Successful reduction of critical 95% to 99% lesion with balloon angioplasty and stent placement in the proximal to mid LAD utilizing a 2.75 x 20 mm Long bare-metal stent postdilated to 2.85 to 2.9 mm with RUSTY-3 flow. No dissections seen and 0% residual stenosis. 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 and did present to the hospital close to 11:30. Of note, the choice of a bare-metal stent was utilized given the fact that he has a known history of an enlarging abdominal aortic aneurysm for which he has refused any type of surgery, now at greater than 6 cm in diameter from a study done at least a year and a half ago. Also he is a Jehovah 's witness patient as well. For now, we will keep him on dual antiplatelets for at least 4 to 6 weeks and possibly as long as 6 months before switching him to just aspirin alone. That will be at the discretion of his school vocational educator up in the [facility] which is where he gets all of his cardiovascular management. High-dose statin therapy will be utilized as well. All of this information was shared with the family and the patient. This information was also given to Dr. Sejal Palencia who is the hospitalist who admitted the patient. We will be following him throughout his hospital course. [id number]/[facility] #: [id number] BRITTANY
--- NOTE | 2018-10-02 12:21 | CONS ---
CC: Chhaya Loyd NP, [facility]: Anthony Alejandre NP at the [facility], [facility] CARDIOLOGY CONSULTATION NOTE: DATE OF CONSULT: 10/02/2018 INDICATION FOR THE CONSULT: Called by the emergency room physician and Dr. Sejal Palencia to assess patient with ongoing chest discomfort and rising troponins. HISTORY OF PRESENT ILLNESS: The patient is an 88-year-old gentleman with no prior definitively known history of coronary artery disease by any cardiac catheterization. His last cardiac catheterization in 2004, performed at [facility] was reportedly free of any significant disease. During the course of his further management from there, all cardiac management was performed by the [facility] and his [facility] doctors. Apparently, the patient did have an abnormal Holter monitor here several years ago that was questionable Mobitz type 2 and for some reason he had placement of a permanent pacemaker. With regard to anginal type symptoms, he describes that he has been having sensation of chest discomfort whenever he would exert himself. If he would sit down, it would go away. It should be noted that he does not do much exertion at all as he has Parkinson's disease. He ended up having the onset of this symptom at 7 p.m. and stated it felt like indigestion, but this was consistent with what he would have when he would exert himself. He remained at home until arriving in the emergency room close to 11:30 p.m., some 4-1/2 hours later. Initial troponin was found to be elevated at 0.83. The patient was given medications, placed on IV nitro, given aspirin, placed on heparin and his discomfort continued. A repeat cardiac enzyme that was performed less than an hour later was elevated to 3.74. As such, Cardiology was called and the emergency room doctor spoke with Dr. Foster who asked them to call me for further assessment with consideration whether proceeding to cardiovascular laboratory would be appropriate. At that point in time, I came to the emergency room to see the patient. He was still having ongoing chest discomfort. It was then we learned he had multiple conditions that increased his risks. He had an abdominal aortic aneurysm of greater than 6. In addition , he also was a Syn[employer] and refused any blood transfusions. He was listed as a do not resuscitate, but apparently the emergency room doctor, Dr. Ray had talked to him about it. Initially, the family was understanding that they would reverse it just for the procedure. With him still having symptoms, we discussed the issue of about proceeding to cardiovascular laboratory. We did discuss the increased risks that were present including the issue about bleeding potential. We did discuss the DNR status and I explained that he would have to rescind the DNR for the whole hospitalization as we would continue to treat him aggressively throughout the hospital course if we were to consider proceeding to the cardiovascular laboratory. They understood that and decided that they wish him to proceed and as such, the decision was made to proceed and hopefully go from the right radial artery. PAST MEDICAL HISTORY: Includes history reportedly of hypertension, Parkinson disease, peripheral neuropathy, anxiety and a question of history of syncope back, which I believe was the reason why he had a permanent pacemaker placed. He has the abdominal aortic aneurysm as mentioned. PAST SURGICAL HISTORY: Bilateral cataracts, right carpal tunnel release, left inguinal hernia, partial colectomy for history of colon cancer and the pacemaker insertion. MEDICATIONS: From home are as per the HPI by Dr. Sejal Palencia, but are noted to include, 1. Metoprolol 50 mg twice a day. 2. Nitroglycerine patch topically. Interestingly, I do not see anything that suggested that he was on aspirin at home. ALLERGIES: No known drug allergies. FAMILY HISTORY: Mother with history of diabetes. Father's history unknown. SOCIAL HISTORY: He used to smoke for only 15 years, but quit extremely long time ago and as mentioned, he is a Synagogue and he does not drink alcohol. REVIEW OF SYSTEMS: As per the H and P. Most important additional issues with proceeding to cardiovascular laboratory, he denies any history of hematochezia, hematemesis, or hematuria. He denies any history of TIA or stroke. He denies any history of contrast allergy. PHYSICAL EXAMINATION: When I saw him in the emergency room, vital signs, blood pressure 115/71, pulse 80, respirations were 20, O2 saturation was 92% to 94%. Neck was supple. I could not accurately assess for increased JVP, but did not see any prominent JVP. Chest had coarse breath sounds in the bases that seemed to improve with deep inspiration. Heart had a regular rate and rhythm with extra systole that was distant in nature, I cannot appreciate a significant systolic or diastolic murmur. Abdomen was obese and soft. Extremities were without significant pitting edema. The femoral pulses were intact without bruits. The right radial artery pulse was strong. Neuro: Patient seemed alert and fairly oriented. Musculoskeletal: He moves all extremities appropriately. Psychological: Normal affect. DIAGNOSTIC STUDIES/LAB DATA: Revealed a hemoglobin/hematocrit 15.4 and 77 with a white count of 11,000, platelet count 152,000. Sodium 143, potassium 4.4, chloride 106, bicarb 28, BUN and creatinine 28 and 1.19. First troponin 0.83. Second troponin 3.74. EKG showed atrial sensed, ventricularly paced. OVERALL ASSESSMENT: Patient presents now continuing with ongoing chest discomfort and rising troponins with significant issues at hand including an abdominal aortic aneurysm for which the family and the patient have deemed they want no treatment, specifically going on to refuse endovascular treatment. They understands that patient could from that at some point in time. Also, the patient is a Synagogue and clearly does not want any blood transfusions. At this point in time, he has already gotten an aspirin, heparin bolus and a heparin drip has been started. We will take him to the cardiovascular laboratory and assess for the presence of significant coronary artery disease. If it is present, I would strongly favor a bare-metal stent given the situation with his large abdominal aortic aneurysm, so as to decrease any risk of potential bleeding. We would be able to at least if we had to stop dual antiplatelet after 4 to 6 weeks and continue baby aspirin only. Further management will be made pending results of the cardiac catheterization. As always, thank you very much for asking me to participate in his care. We follow him along with you. [id number]/[facility] #: [id number] BRITTANY
[2018-10-02] MEDS: Ticagrelor* 90 MG TAB PO SCH ×2 (13:00→21:10)
[2018-10-02 13:09] LABS: Creatine Kinase 1264 U/L (10-223)
[2018-10-02 13:13] LABS: CKMB ng/mL 170.4 ng/mL (0.6-6.3)
[2018-10-02 13:14] LABS: Troponin I 71.31 ng/mL (<0.04)
[2018-10-02] MEDS ORDERED: Atorvastatin* 80 MG TAB PO SCH (17:00)
[2018-10-02] MEDS: Carbidopa/Levodop CR 50/200(*) TAB.CR PO SCH (21:09)
[2018-10-02] MEDS: Acetaminophen TAB* 325 MG PO SCH (21:10)
[2018-10-03 05:15] LABS: ABS Basophils 0.1 10^3/ul (0-0.2); ABS Eosinophils 0.1 10^3/ul (0-0.6); ABS Lymphocytes 1.1 10^3/ul (1.0-4.8); ABS Monocytes 0.9 10^3/ul (0-0.8); ABS Neutrophils 8.2 10^3/ul (1.5-7.7); Eosinophil % 0.6 %; Hematocrit 46 % (42-52); Hemoglobin 15.2 g/dL (14.0-18.0); Lymphocyte % 10.5 %; Mean Corpuscular HGB Conc 33 g/dL (31-36); Mean Corpuscular Hemoglobin 33 pg (27-31); Mean Corpuscular Volume 99 fL (80-94); Mean Platelet Volume 7.8 fL (7.4-10.4); Platelet Count 154 10^3/uL (150-450); Red Blood Count 4.64 10^6 /uL (4.18-5.48); Red Cell Distribution Width 15 % (10-15); White Blood Count 10.3 10^3/uL (3.5-10.8)
[2018-10-03 05:32] LABS: Albumin 3.7 g/dL (3.2-5.2); Albumin/Globulin Ratio 1.2 (1-3); BUN/Creatinine Ratio 18.4 (8-20); Calcium 9.5 mg/dL (8.6-10.3); EGFR African American 100.7 (>60); EGFR Non-African American 83.2 (>60); Globulin 3.2 g/dL (2-4); Total Bilirubin 1.5 mg/dL (0.2-1.0); Total Protein 6.9 g/dL (6.4-8.9)
[2018-10-03] MEDS ORDERED: Perflutren Lipid Microsphere* 3 ML VIAL ONE (07:57)
[2018-10-03] MEDS: Metoprolol Succinate XL TAB* 50 MG PO SCH ×2 (08:35→20:24)
[2018-10-03] MEDS: Gabapentin CAP(*) 300 MG PO SCH ×2 (08:35→20:26)
[2018-10-03] MEDS: Lisinopril TAB* 5 MG PO SCH (08:35)
[2018-10-03] MEDS: Atorvastatin* 80 MG TAB PO SCH (08:35)
[2018-10-03] MEDS: Ticagrelor* 90 MG TAB PO SCH ×2 (08:36→20:26)
[2018-10-03] MEDS: Docusate CAP* 100 MG PO SCH (08:36)
[2018-10-03] MEDS: Aspirin 81 mg CHEW TAB* 81 MG TAB.CHEW PO SCH (08:36)
[2018-10-03] MEDS: Carbidopa/Levodop 25/100 MG TAB(*) PO SCH ×3 (08:36→17:59)
[2018-10-03] MEDS: Amantadine CAP* 100 MG PO SCH ×2 (08:36→15:54)
[2018-10-03] MEDS: Nitroglycerin 0.3 MG/HR PATCH* (7.5 MG) TRANSDERM SCH (09:04)
--- NOTE | 2018-10-03 12:18 | PN ---
Subjective Date of Service: 10/03/18 Interval History: Patient seen in ICU this morning. Case discussed with Dr. Oneill. His cardiac meds has been adjusted. I will reassess this afternoon and potential transfer to [facility]. He is complaining of cough productive. no chest pain today. no fever. Past Medical History: Unchanged from Admission Objective Active Medications: Acetaminophen (Tylenol Tab*) 650 mg PO 2100 [facility] Last Admin: 10/02/18 21:10 Dose: 650 mg Amantadine HCl (Symmetrel Cap*) 100 mg PO 0800,1500 [facility] Last Admin: 10/03/18 08:36 Dose: 100 mg Aspirin (Aspirin 81 Mg Chew Tab*) 81 mg PO DAILY [facility] Last Admin: 10/03/18 08:36 Dose: 81 mg Atorvastatin Calcium (Lipitor*) 80 mg PO DAILY@0730 [facility] Last Admin: 10/03/18 08:35 Dose: 80 mg Carbidopa/Levodopa (Sinemet 25/100 Tab(*)) 2 tab PO 0930,1330,1730 [facility] Last Admin: 10/03/18 08:36 Dose: 2 tab Carbidopa/Levodopa (Sinemet Cr 50/200(*)) 1 tab.cr PO 2000 [facility] Last Admin: 10/02/18 21:09 Dose: 1 tab.cr Docusate Sodium (Colace Cap*) 100 mg PO DAILY [facility] Last Admin: 10/03/18 08:36 Dose: 100 mg Gabapentin (Neurontin Cap(*)) 300 mg PO 0730,2100 [facility] Last Admin: 10/03/18 08:35 Dose: 300 mg Guaifenesin (Mucinex*) 600 mg PO BID [facility] Heparin Sodium (Porcine) (Heparin Vial(*)) 5,000 units SUBCUT Q12HR [facility] Lisinopril (Prinivil Tab*) 2.5 mg PO DAILY [facility] Last Admin: 10/03/18 08:35 Dose: 2.5 mg Lorazepam (Ativan Tab(*)) 0.5 mg PO BEDTIME PRN PRN Reason: ANXIETY Metoprolol Succinate (Toprol Xl Tab*) 75 mg PO BID [facility] Last Admin: 10/03/18 08:35 Dose: 75 mg Nitroglycerin (Nitroglycerin 7.5 Mg Patch*) 1 patch TRANSDERM DAILY [facility] Last Admin: 10/03/18 09:04 Dose: 1 patch Nitroglycerin (Nitroglycerin Tab 0.4 Mg*) 0.4 mg SL Q5M PRN PRN Reason: ANGINA Oxycodone HCl (Roxycodone Tab*) 5 mg PO Q6H PRN PRN Reason: PAIN Ticagrelor (Brilinta*) 90 mg PO BID [facility] Last Admin: 10/03/18 08:36 Dose: 90 mg Vital Signs - 8 hr 10/03/18 10/03/18 10/03/18 05:00 05:01 06:00 Temperature Pulse Rate 91 90 95 Respiratory 23 16 16 Rate Blood Pressure 144/76 (mmHg) O2 Sat by Pulse 93 93 92 Oximetry 10/03/18 10/03/18 10/03/18 06:01 07:00 07:01 Temperature Pulse Rate 93 88 90 Respiratory 23 22 17 Rate Blood Pressure 124/80 131/63 (mmHg) O2 Sat by Pulse 92 94 92 Oximetry 10/03/18 10/03/18 10/03/18 07:57 08:00 09:00 Temperature 98.6 F Pulse Rate 88 92 Respiratory 20 16 Rate Blood Pressure 150/80 (mmHg) O2 Sat by Pulse 93 92 Oximetry 10/03/18 09:01 Temperature Pulse Rate 94 Respiratory 22 Rate Blood Pressure 134/87 (mmHg) O2 Sat by Pulse 92 Oximetry Oxygen Devices in Use Now: Nasal Cannula Appearance: awake, alert. no distress. Eyes: No Scleral Icterus, - - EOMI Ears/Nose/Mouth/Throat: NL Teeth, Lips, Gums, Mucous Membranes Moist Neck: NL Appearance and Movements; NL JVP, Trachea Midline Respiratory: - - transmitted upper airway breathsound, bilateral clears up with coughing. Cardiovascular: NL Sounds; No Murmurs; No JVD Abdominal: NL Sounds; No Tenderness; No Distention Extremities: No Edema Skin: No Rash or Ulcers Neurological: Alert and Oriented x 3 Result Diagrams: 10/03/18 05:01 10/03/18 05:01 Microbiology and Other Data: Microbiology 10/02/18 04:40 Nasal Screen MRSA (PCR) - Final Nasal Mrsa Not Detected Assess/Plan/Problems-Billing Assessment: 88 y/o male known history of AAA (patient opted to stop following and declined surgery); Parkinson, Pacemaker, admitted for chest pain and NQMI s/p bare-metal stent to his left circumflex. - Patient Problems (1) Non-ST elevated myocardial infarction (non-STEMI) Current Visit: Yes Status: Acute Code(s): I21.4 - NON-ST ELEVATION (NSTEMI) MYOCARDIAL INFARCTION SNOMED Code(s): 08122878 Comment: - s/p cardiac cath 10/01/18 with baremetal stent to left circumflex ( 95%) stenosis - On lopressor-XL 75 mg bid, brilinta 90 mg bid, Aspirin 81 mg daily, lipitor 80 mg HS, and captopril 6.25 mg tid changed to lisinopril 2.5 mg daily - Possible tranfer to floor this afternoon (2) CAD (coronary artery disease) Current Visit: Yes Status: Acute Code(s): I25.10 - ATHSCL HEART DISEASE OF [place] CORONARY ARTERY W/O ANG PCTRS SNOMED Code(s): 28495300 Comment: - s/p cardiac cath 10/01/18 with baremetal stent to left circumflex - Offical cath report pending - on lopressor 50 mg bid, brilinta 90 mg bid, Aspirin 81 mg daily, lipitor 80 mg HS, captopril 6.25 mg tid- s/p cardiac cath 10/01/18 with baremetal stent to his left circumflex (3) Hypertension Current Visit: Yes Status: Acute Code(s): I10 - ESSENTIAL (PRIMARY) HYPERTENSION SNOMED Code(s): 13425400 Comment: - BP was as high as 211/100. - Aggressive BP control required espescially with his NQMI and AAA - On lopressor-XL 75 mg bid, brilinta 90 mg bid, Aspirin 81 mg daily, lipitor 80 mg HS, and captopril 6.25 mg tid changed to lisinopril 2.5 mg daily (4) AAA (abdominal aortic aneurysm) Current Visit: Yes Status: Acute Code(s): I71.4 - ABDOMINAL AORTIC ANEURYSM , WITHOUT RUPTURE SNOMED Code(s): 856875088 Comment: - Last available scan from [place] reviewed > 6cm from 2017 - He was scheduled for intravascular repair, however, the patient elected not to pursue repair and declined further imaging as he does not want it to be repaired - I revisisted with him 10/02/18 the risk of rupture and sudden and he is fully aware and his response was "it goes when it goes, I am 88 year old...I had a latasha who had it done and he did not make it..." Will defer any further work up (5) Parkinson disease Current Visit: Yes Status: Acute Code(s): G20 - PARKINSON'S DISEASE SNOMED Code(s): 08522403 Comment: - continue amantadine 100 mg bid - Continue sinemet 25/100 2 tabs tid and 1 tab at bedtime (6) DVT prophylaxis Current Visit: Yes Status: Acute Code(s): Z29.9 - ENCOUNTER FOR PROPHYLACTIC MEASURES, UNSPECIFIED SNOMED Code(s): 352987697 Comment: - SCD, heparin SQ bid
[2018-10-03] MEDS: guaiFENesin ER TAB 600 MG PO SCH ×2 (13:56→20:26)
[2018-10-03] MEDS: Carbidopa/Levodop CR 50/200(*) TAB.CR PO SCH (20:25)
[2018-10-03] MEDS: Acetaminophen TAB* 325 MG PO SCH (20:25)
[2018-10-03] MEDS: Heparin VIAL(*) 5000 UNITS/ML VIAL (FIVE THOUSAND) SUBCUT SCH (20:26)
[2018-10-03] MEDS ORDERED: Nitro Patch/OINT Remove PATCH OFF SCH (21:00)
[2018-10-04 07:03] LABS: ABS Eosinophils 0.1 10^3/ul (0-0.6); ABS Lymphocytes 1.1 10^3/ul (1.0-4.8); ABS Monocytes 0.8 10^3/ul (0-0.8); ABS Neutrophils 6.9 10^3/ul (1.5-7.7); Eosinophil % 1.2 %; Hematocrit 44 % (42-52); Hemoglobin 15.3 g/dL (14.0-18.0); Lymphocyte % 12.7 %; Mean Corpuscular HGB Conc 35 g/dL (31-36); Mean Corpuscular Hemoglobin 34 pg (27-31); Mean Corpuscular Volume 98 fL (80-94); Mean Platelet Volume 8.2 fL (7.4-10.4); Platelet Count 162 10^3/uL (150-450); Red Blood Count 4.49 10^6 /uL (4.18-5.48); Red Cell Distribution Width 16 % (10-15)
[2018-10-04 07:19] LABS: BUN/Creatinine Ratio 25.9 (8-20); Calcium 9.3 mg/dL (8.6-10.3); EGFR African American 72.2 (>60); EGFR Non-African American 59.7 (>60); Magnesium 1.9 mg/dL (1.9-2.7); Phosphorus 2.7 mg/dL (2.5-5.0); Potassium 3.6 mmol/L (3.5-5.0)
[2018-10-04] MEDS: Heparin VIAL(*) 5000 UNITS/ML VIAL (FIVE THOUSAND) SUBCUT SCH ×2 (08:58→20:03)
[2018-10-04] MEDS: Amantadine CAP* 100 MG PO SCH ×2 (08:59→14:58)
[2018-10-04] MEDS: Ticagrelor* 90 MG TAB PO SCH ×2 (09:00→20:03)
[2018-10-04] MEDS: Metoprolol Succinate XL TAB* 50 MG PO SCH (09:01)
[2018-10-04] MEDS: Docusate CAP* 100 MG PO SCH (09:01)
[2018-10-04] MEDS: Lisinopril TAB* 5 MG PO SCH (09:03)
[2018-10-04] MEDS: Aspirin 81 mg CHEW TAB* 81 MG TAB.CHEW PO SCH (09:03)
[2018-10-04] MEDS: guaiFENesin ER TAB 600 MG PO SCH ×2 (09:03→20:04)
[2018-10-04] MEDS: Gabapentin CAP(*) 300 MG PO SCH ×2 (09:04→20:03)
[2018-10-04] MEDS: Atorvastatin* 80 MG TAB PO SCH (09:04)
[2018-10-04] MEDS: Nitroglycerin 0.3 MG/HR PATCH* (7.5 MG) TRANSDERM SCH (09:06)
[2018-10-04] MEDS: Carbidopa/Levodop 25/100 MG TAB(*) PO SCH ×3 (09:47→17:09)
[2018-10-04] MEDS: Carbidopa/Levodop CR 50/200(*) TAB.CR PO SCH (20:03)
[2018-10-04] MEDS: Metoprolol Tartrate TAB* 50 mg PO SCH (20:04)
[2018-10-04] MEDS: Acetaminophen TAB* 325 MG PO SCH (20:04)
--- NOTE | 2018-10-04 20:31 | PN ---
Subjective Date of Service: 10/04/18 Interval History: HOSPITALIST PROGRESS NOTE Patient seen and examined at bedside. Care reviewed and d/w Meredith Giron RN. He offers no complaints today. Daughter was presented at bedtime. Family History: Unchanged from Admission Social History: Unchanged from Admission Past Medical History: Unchanged from Admission Objective Active Medications: Acetaminophen (Tylenol Tab*) 650 mg PO 2100 [facility] Last Admin: 10/04/18 20:04 Dose: 650 mg Amantadine HCl (Symmetrel Cap*) 100 mg PO 0800,1500 [facility] Last Admin: 10/04/18 14:58 Dose: 100 mg Aspirin (Aspirin 81 Mg Chew Tab*) 81 mg PO DAILY [facility] Last Admin: 10/04/18 09:03 Dose: 81 mg Atorvastatin Calcium (Lipitor*) 80 mg PO DAILY@0730 [facility] Last Admin: 10/04/18 09:04 Dose: 80 mg Carbidopa/Levodopa (Sinemet 25/100 Tab(*)) 2 tab PO 0930,1330,1730 [facility] Last Admin: 10/04/18 17:09 Dose: 2 tab Carbidopa/Levodopa (Sinemet Cr 50/200(*)) 1 tab.cr PO 2000 [facility] Last Admin: 10/04/18 20:03 Dose: 1 tab.cr Docusate Sodium (Colace Cap*) 100 mg PO DAILY [facility] Last Admin: 10/04/18 09:01 Dose: 100 mg Gabapentin (Neurontin Cap(*)) 300 mg PO 0730,2100 [facility] Last Admin: 10/04/18 20:03 Dose: 300 mg Guaifenesin (Mucinex*) 600 mg PO BID [facility] Last Admin: 10/04/18 20:04 Dose: 600 mg Heparin Sodium (Porcine) (Heparin Vial(*)) 5,000 units SUBCUT Q12HR [facility] Last Admin: 10/04/18 20:03 Dose: 5,000 units Lisinopril (Prinivil Tab*) 2.5 mg PO DAILY [facility] Lorazepam (Ativan Tab(*)) 0.5 mg PO BEDTIME PRN PRN Reason: ANXIETY Metoprolol Tartrate (Lopressor Tab*) 50 mg PO BID [facility] Last Admin: 10/04/18 20:04 Dose: Not Given Nitroglycerin (Nitroglycerin Tab 0.4 Mg*) 0.4 mg SL Q5M PRN PRN Reason: ANGINA Oxycodone HCl (Roxycodone Tab*) 5 mg PO Q6H PRN PRN Reason: PAIN Ticagrelor (Brilinta*) 90 mg PO BID [facility] Last Admin: 10/04/18 20:03 Dose: 90 mg Vital Signs - 8 hr 10/04/18 10/04/18 10/04/18 15:49 16:12 20:03 Temperature 97.2 F Pulse Rate 73 Respiratory 20 18 Rate Blood Pressure 86/50 80/58 (mmHg) O2 Sat by Pulse 96 Oximetry 10/04/18 20:04 Temperature 97.1 F Pulse Rate 72 Respiratory 16 Rate Blood Pressure 85/51 (mmHg) O2 Sat by Pulse 96 Oximetry Oxygen Devices in Use Now: None Appearance: Pleasant elderly gentleman sitting up in bed in NAD. Eyes: No Scleral Icterus Ears/Nose/Mouth/Throat: Mucous Membranes Moist Neck: Trachea Midline Respiratory: Symmetrical Chest Expansion and Respiratory Effort, Clear to Auscultation Cardiovascular: RRR - Normal S1 and S2 Abdominal: NL Sounds; No Tenderness; No Distention Extremities: No Edema Neurological: Alert and Oriented x 3, NL Muscle Strength and Tone Result Diagrams: 10/04/18 06:31 10/04/18 06:31 Assess/Plan/Problems-Billing Assessment: Mr Smith is an 88 yo M with PMH of HTN, Parkison's disease, PNP, anxiety, AAA ( patient opted to stop following and declined surgery)s/p pacemaker, colon CA, Jehova's witness, who presented to ED with c/o chest pain, found to have NSTEMI , s/p bare-metal stent to his left circumflex. - Patient Problems (1) Non-ST elevated myocardial infarction (non-STEMI) Comment: - S/p cardiac cath 10/01/18 with bare metal stent to left circumflex due to 95% stenosis - Continue Aspirin, Brilinta, Atorvastatin. - Will titrate Lisinopril and Metoprolol down due to hypotension. (2) Parkinson disease Comment: - Continue Amantadine and Sinemet. (3) Physical deconditioning Comment: - PT re-evaluation (4) DVT prophylaxis Comment: - SQ heparin (5) Full code status Status and Disposition: Inpatient. Continue to titrate meds as tolerated. Plan for d/c home with [facility] vs [facility] depending on progress with PT.
[2018-10-04] MEDS ORDERED: Metoprolol Tartrate TAB* 25 MG PO SCH (21:00)
[2018-10-05 08:02] VITALS: BP 142/76
[2018-10-05] MEDS: Gabapentin CAP(*) 300 MG PO SCH (08:06)
[2018-10-05] MEDS: Heparin VIAL(*) 5000 UNITS/ML VIAL (FIVE THOUSAND) SUBCUT SCH (08:06)
[2018-10-05] MEDS: Aspirin 81 mg CHEW TAB* 81 MG TAB.CHEW PO SCH (08:07)
[2018-10-05] MEDS: Amantadine CAP* 100 MG PO SCH (08:07)
[2018-10-05] MEDS: Ticagrelor* 90 MG TAB PO SCH (08:07)
[2018-10-05] MEDS: Atorvastatin* 80 MG TAB PO SCH (08:08)
[2018-10-05] MEDS: guaiFENesin ER TAB 600 MG PO SCH (08:08)
[2018-10-05] MEDS: Metoprolol Tartrate TAB* 50 mg PO SCH (08:08)
[2018-10-05] MEDS: Docusate CAP* 100 MG PO SCH (08:08)
[2018-10-05] MEDS: Carbidopa/Levodop 25/100 MG TAB(*) PO SCH (08:11)
[2018-10-05] MEDS ORDERED: Lisinopril TAB* 5 MG PO SCH ×2 (09:00)
[2018-10-05] MEDS ORDERED: Potassium Chlor TAB* 20 MEQ TAB.ER PO ONE (09:21)
--- NOTE | 2018-10-05 09:27 | PN ---
Subjective Date of Service: 10/05/18 - NSTEMI s/p PTCA/BMS to proximal to mid Lcx 10/02/2018 Interval History: No events last night, patient offers no complaints. He has been ambulating the halls with no difficulty. Denies chest pain, sob, schilling, palpitations or dizziness. He is sitting in chair with daughters at his bedside shaving when I entered the room. Medications Active Medications: Acetaminophen (Tylenol Tab*) 650 mg PO 2100 [facility] Last Admin: 10/04/18 20:04 Dose: 650 mg Amantadine HCl (Symmetrel Cap*) 100 mg PO 0800,1500 [facility] Last Admin: 10/05/18 08:07 Dose: 100 mg Aspirin (Aspirin 81 Mg Chew Tab*) 81 mg PO DAILY [facility] Last Admin: 10/05/18 08:07 Dose: 81 mg Atorvastatin Calcium (Lipitor*) 80 mg PO DAILY@0730 [facility] Last Admin: 10/05/18 08:08 Dose: 80 mg Carbidopa/Levodopa (Sinemet 25/100 Tab(*)) 2 tab PO 0930,1330,1730 [facility] Last Admin: 10/05/18 08:11 Dose: 2 tab Carbidopa/Levodopa (Sinemet Cr 50/200(*)) 1 tab.cr PO 2000 [facility] Last Admin: 10/04/18 20:03 Dose: 1 tab.cr Docusate Sodium (Colace Cap*) 100 mg PO DAILY [facility] Last Admin: 10/05/18 08:08 Dose: 100 mg Gabapentin (Neurontin Cap(*)) 300 mg PO 0730,2100 [facility] Last Admin: 10/05/18 08:06 Dose: 300 mg Guaifenesin (Mucinex*) 600 mg PO BID [facility] Last Admin: 10/05/18 08:08 Dose: 600 mg Heparin Sodium (Porcine) (Heparin Vial(*)) 5,000 units SUBCUT Q12HR [facility] Last Admin: 10/05/18 08:06 Dose: 5,000 units Lisinopril (Prinivil Tab*) 2.5 mg PO DAILY [facility] Last Admin: 10/05/18 08:08 Dose: 2.5 mg Lorazepam (Ativan Tab(*)) 0.5 mg PO BEDTIME PRN PRN Reason: ANXIETY Metoprolol Tartrate (Lopressor Tab*) 50 mg PO BID [facility] Last Admin: 10/05/18 08:08 Dose: 50 mg Nitroglycerin (Nitroglycerin Tab 0.4 Mg*) 0.4 mg SL Q5M PRN PRN Reason: ANGINA Oxycodone HCl (Roxycodone Tab*) 5 mg PO Q6H PRN PRN Reason: PAIN Potassium Chloride (Klor Con Er Tab*) 40 meq PO ONCE ONE Stop: 10/05/18 09:22 Ticagrelor (Brilinta*) 90 mg PO BID [facility] Last Admin: 10/05/18 08:07 Dose: 90 mg Objective Vital Signs: Temp Pulse Resp BP Pulse Ox 98.1 F 74 20 142/76 98 10/05/18 08:00 10/05/18 08:00 10/05/18 08:06 10/05/18 08:00 10/05/18 08:00 Oxygen Devices in Use Now: None Appearance: sitting in chair, NAD, A+O x3 cooperative with exam Ears/Nose/Mouth/Throat: NL Teeth, Lips, Gums, Mucous Membranes Moist Neck: NL Appearance and Movements; NL JVP Respiratory: Symmetrical Chest Expansion and Respiratory Effort, Clear to Auscultation Cardiovascular: NL Sounds; No Murmurs; No JVD, No Edema Abdominal: NL Sounds; No Tenderness; No Distention Extremities: No Edema, - - + varicose veins in BLE, right radial access site is intact, no hematoma. + strong palpable pulse, non tender to palpation. Skin: No Rash or Ulcers Neurological: Alert and Oriented x 3 Lines/Tubes/Other Access: Clean, Dry and Intact Peripheral IV Laboratory Results: 10/04/18 06:31 10/04/18 06:31 APTT 34.5 seconds (26.0-38.0) 10/03/18 05:01 Total Bilirubin 1.50 mg/dL (0.2-1.0) H 10/03/18 05:01 AST 95 U/L (13-39) H 10/03/18 05:01 ALT 6 U/L (7-52) L 10/03/18 05:01 Alkaline Phosphatase 79 U/L (34-104) 10/03/18 05:01 CK-MB (CK-2) 170.4 ng/mL (0.6-6.3) H 10/02/18 12:37 Total Protein 6.9 g/dL (6.4-8.9) 10/03/18 05:01 Albumin 3.7 g/dL (3.2-5.2) 10/03/18 05:01 Globulin 3.2 g/dL (2-4) 10/03/18 05:01 Albumin/Globulin Ratio 1.2 (1-3) 10/03/18 05:01 Triglycerides 148 mg/dL 10/01/18 23:02 Cholesterol 128 mg/dL 10/01/18 23:02 LDL Cholesterol 69 mg/dL 10/01/18 23:02 HDL Cholesterol 29.6 mg/dL 10/01/18 23:02 10/01/18 10/02/18 10/02/18 23:02 00:29 06:19 Troponin I 0.83 H* 3.74 H* > 79.00 H* 10/02/18 12:37 Troponin I 71.31 H* Diagnostic Imaging: Echo 10/03/2018 per report LVEF 40%. trace to mild AR, + RWMA LHC 10/02/2018 please refer to dictated report in EHR. EKG Data: 10/05/2018 EKG; INSTALLMENT LOAN COLLECTOR rate 81. Telemetry reviewed; INSTALLMENT LOAN COLLECTOR rate 70-80's rare PVC, no VT Assessment/Plan #1 NSTEMI 10/02/2018 patient underwent successful PTCA/BMS proximal to mid Lcx. Troponin peaked on 10/02/2018 at >79. LVEF 40%. He is on Aspirin 81/day, Brilinta 90mg PO BID, Lipitor 80mg PO QHS, Lopressor 50mg Po BID. He had a BMS placed due to known AAA with expansion. He is to follow up with Dr. Oneill on 10/12/2018 at 3pm. I stressed the importance of compliance with medications specifically ASA and Brilinta therapy. He and his daughters are aware to avoid NSAIDS and to not take more than aspirin 81mg/day in combination with Brilinta. Free 30 day supply of Brilinta was already given to the patient and his daughter. No lifting more than 5-10 lbs for [address]. He denies recurrent c/o chest pain. #2 ICM; LVEF 40%. Compensated on exam. On Lopressor 50mg Po BID and Lisinopril 2.5mg/day. #3 Known AAA; Patient's BP is controlled. Recommend BP < 120/80 given AAA was > 6cm per consult note. He is also on high intensity statin therapy. He will need to f/u with PCP. Recommend no lifting more than 5-10lbs. #4 Hypokalemia; Will replace with 40 MEQ K-DUR. #5 Disposition pending course. Will sign off. D/W Dr. Casillas who agrees with above assessment and plan. Attending: Juana Casillas
--- NOTE | 2018-10-08 22:37 | DS ---
CC: Chhaya Loyd NP, [place]; Dr. Oneill; Anthonyzuri Alejandre NP, [facility] [place] DISCHARGE SUMMARY: DATE OF ADMISSION: 10/02/18 DATE OF DISCHARGE: 10/05/18 PRIMARY CARE PROVIDER: Chhaya Loyd NP HARDENING MACHINE OPERATOR: Dr. Oneill. DISCHARGE DIAGNOSES: 1. Non-ST elevation myocardial infarction, status post bare-metal stent to the left circumflex. 2. Ischemic cardiomyopathy with ejection fraction of 40%. SECONDARY DIAGNOSES: 1. Hypertension. 2. Parkinson's disease. 3. Peripheral neuropathy. 4. Anxiety. 5. Hypertension. 6. Abdominal aortic aneurysm. 7. Status post pacemaker. 8. Colon cancer, status post resection. MEDICATION LIST: 1. Acetaminophen 650 mg p.o. at bedtime. 2. Lorazepam 0.5 mg p.o. at bedtime as needed for anxiety and insomnia. 3. Gabapentin 300 mg p.o. 3 times a day. 4. Amantadine 100 mg p.o. twice a day. 5. Carbidopa/levodopa 25/100 two tablets p.o. at 9:30, 1:30, and 5:30, and carbidopa/levodopa CR 50/ 200 one tablet p.o. at 8 p.m. 6. Colace 100 mg p.o. daily. New medications: 1. Metoprolol tartrate 50 mg p.o. b.i.d. 2. Brilinta 90 mg p.o. b.i.d. 3. Nitroglycerin 0.4 mg sublingual q.5 minutes p.r.n. chest pain. 4. Lisinopril 2.5 mg p.o. daily. 5. Atorvastatin 80 mg p.o. daily. 6. Aspirin 81 mg p.o. daily. HOSPITAL COURSE: Mr. Smith is an 88-year-old male with a past medical history as stated above that presented to the emergency room with complaints of retrosternal chest pain described as pressure, wor sened by exertion. For more details about his presentation, I refer you to his history and physical. In the emergency room, he was found to have a troponin of 0.83 and that peaked at . His EKG dacia wed paced rhythm. The patient was admitted under the impression of non-ST elevation LA for further m anagement. He was seen in consultation by Cardiology (Dr. Oneill). Dr. Oneill's impression was that the patient had presented with ongoing chest discomfort, rising troponins, and he felt that he had significant i ssues at hand including abdominal aortic aneurysm for which the family and the patient had deemed the y want no treatment. Also, the patient is a [employer] and clearly does not want any blood tra nsfusions. He was taken to the cardiovascular lab and Dr. Oneill's recommendation was for a bare-met al stent given the situation with his large abdominal aortic aneurysm so as to decrease the risk of p otential bleeding. The idea was to stop dual antiplatelet therapy after 4 to 6 weeks and be able to continue baby aspirin only. The patient had an echocardiogram that showed an ejection fraction of 40% with regional wall motion a bnormalities with hypokinesis of the anterolateral, inferolateral myocardium, akinesis of the basal m id inferolateral and basal mid anterolateral myocardium. The patient underwent cardiac catheterizati on and was found to have significant single-vessel disease involving the proximal to mid circumflex w ith 95% to 99% lesion that was stent with a bare-metal stent. As described above, the plan is to tiffany p him on dual antiplatelets for 4 to 6 weeks and possibly as long as 6 months before switching him to just aspirin alone. Dr. Oneill recommended that the decision when to discontinue the dual antiplate let therapy would be up to the patient's special weapons and tactics officer in the [facility]. After his cath, the patient's medications were optimized. His lisinopril and metoprolol dose had bee n increased, but unfortunately he could not tolerate it due to hypotension. The patient had significant improvement of his symptoms. He did well with physical therapy and he wa s felt to be medically stable for discharge home to have visiting nurse services on discharge. PHYSICAL EXAMINATION: Vital Signs: Temperature 98.1, heart rate 74, respiratory rate is 20, oxygen saturation is 94% on room air, blood pressure is 113/60. General: The patient is a pleasant elderly gentleman, sitting up in bed, in no acute distress. CVS: Normal S1, S2. Regular rate and rhythm. Chest: Breath sounds present bilaterally with no added sounds. Extremities: No edema. Neuro: He i s alert, awake, oriented x3. Able to move all 4 extremities. DIET: Heart-healthy diet. ACTIVITIES: As tolerated. DISPOSITION: To home. STATUS WHILE IN THE HOSPITAL: Inpatient. CONDITION AT THE TIME OF DISCHARGE: Fair. Please keep in mind that this is a summarized version of this patient's hospital stay. If you need m ore information, please feel free to call me at [phone] or please obtain the full medical record s. TIME SPENT: Approximately 45 minutes was spent to complete this discharge. [id number]/CPS #: [id number]
== END 2018-10-05 10:32 | disposition home health service (06) | DRG 249 ==
LOC: ED 22:23 → CHICATH 10-02 02:37 → ICU 10-02 04:25 → MEDTELE 10-03 16:20
PROVIDERS: ADMIT Internal Medicine Cardiovascular Disease; ATTEND Internal Medicine
PROC: B211YZZ Fluoroscopy of Multiple Coronary Arteries using Other Contrast (ICD-10-PCS; 2018-10-02)
PROC: 02703DZ Dilation of Coronary Artery, One Artery with Intraluminal Device, Percutaneous Approach (ICD-10-PCS; principal; 2018-10-02 02:45)
DX: I21.4 Non-ST elevation (NSTEMI) myocardial infarction (principal); G20 Parkinson's disease; G62.9 Polyneuropathy, unspecified; F41.9 Anxiety disorder, unspecified; H53.2 Diplopia; I12.9 Hypertensive chronic kidney disease with stage 1 through stage 4 chronic kidney disease, or unspecified chronic kidney disease; N18.3 Chronic kidney disease, stage 3 (moderate); Z66 Do not resuscitate; I71.4 Abdominal aortic aneurysm, without rupture; E87.6 Hypokalemia; I25.5 Ischemic cardiomyopathy; Z98.42 Cataract extraction status, left eye; Z98.41 Cataract extraction status, right eye; Z90.49 Acquired absence of other specified parts of digestive tract; Z95.0 Presence of cardiac pacemaker; Z83.3 Family history of diabetes mellitus; Z87.891 Personal history of nicotine dependence; Z85.038 Personal history of other malignant neoplasm of large intestine
CPT/HCPCS: 36415; 71045; 71046; 76937; 80048; 80053; 80061; 82550; 82553; 83036; 83735; 84100; 84484; 85025; 85347; 85730; 87641; 93005; 93306; 99285; A9270-GY; C1725; C1769; C1876; C1887; C8929; G8978-GP-CK; G8979-GP-CJ; G8987-GO-CI; G8988-GO-CI; G8989-GO-CI; J0583; J1644; J2250; J3010

== ENCOUNTER 2018-10-08 14:15 | Emergency (ER) | payer OTHER ==
--- NOTE | 2018-10-08 15:21 | ED ---
Complex/Multi-Sys Presentation - HPI Summary HPI Summary: 88 year old M presenting to [facility] accompanied by two daughters and son-in-law with a chief complaint of productive cough since 09/21/18, worse since today 10/08. Daughter reports that sputum is thick and "stretchy". Symptoms aggravated by nothing. Symptoms alleviated by nothing. Visiting home nurse reports shortness of breath today and suggested that pt go to the ED. Patient denies fever and fatigue. Patient had one cardiac stent placed on 10/02/18 after non- STEMI per daughter. Daughter states that while in the hospital, patient received suction to relieve his cough secretions and he liked it and it helped. [facility], and served in the [employer]. Patient was discharged on 10/05/18. Daughter states that patient has taken Mucinex. Daughter denies taking an antibiotic for this cough that preceded the admission for the nonSTEMI. Today 10/08/18, visiting nurse was concerned about his shortness of breath, cough, and "gurgling noise in his lungs" per daughter. Patient denies hx COPD. Patient is a former smoker. Patient is taking lisinopril and he was taking lisinopril before the cough. Pt has Parkinson's disease and takes Sinemet. When daughter went to purchase OTC guaifenesin she noted warnings against given guaifenesin to pt's with Parkinson's disease. Vital signs while in room: HR 72 bpm, BP 132/62, O2 sat 96% Home Medications Medication Instructions Recorded Confirmed Type Carbidopa/Levodop 25/100 MG(*) 2 tab PO 0930,1330,1730 06/10/14 10/02/18 History [Sinemet 25/100 TAB(*)] LORazepam TAB(*) [Ativan 0.5 MG 0.5 mg PO BEDTIME PRN 06/10/14 10/02/18 History TAB (*)] Amantadine CAP* [Symmetrel CAP*] 100 mg PO 0800,1500 10/01/18 10/02/18 History Carbidopa/Levodop CR 50/200(*) 1 tab.cr PO 199910/01/18 10/02/18 History [Sinemet CR 50/200(*)] Docusate Sodium [Colace] 100 mg PO DAILY 10/01/18 10/01/18 History Gabapentin CAP(*) [Neurontin 300 300 mg PO 0730,1400,2100 10/01/18 10/02/18 History CAP(*)] Metoprolol Tartrate [Lopressor] 50 mg PO BID 10/01/18 10/01/18 History Acetaminophen [Tylenol] 650 mg PO 209910/02/18 10/02/18 History Aspirin 81 mg CHEW TAB* 81 mg PO DAILY #30 tab 10/05/18 Rx Aspirin 81 mg CHEW TAB* 81 mg PO DAILY #30 tab 10/05/18 Rx Atorvastatin* [Lipitor 80 MG*] 80 mg PO DAILY #30 tab 10/05/18 Rx Atorvastatin* [Lipitor 80 MG*] 80 mg PO DAILY@0730 #30 tab 10/05/18 Rx Lisinopril [Lisinopril 2.5 MG-] 2.5 mg PO DAILY #30 tab 10/05/18 Rx Lisinopril [Lisinopril 2.5 MG-] 2.5 mg PO DAILY #30 tab 10/05/18 Rx Nitroglycerin TAB 0.4 MG* 0.4 mg SL Q5M PRN #30 tab 10/05/18 Rx Nitroglycerin TAB 0.4 MG* 0.4 mg SL Q5M PRN #30 tab 10/05/18 Rx Ticagrelor* [Brilinta 90 MG*] 90 mg PO BID #60 tab 10/05/18 Rx - History Of Current Complaint Chief Complaint: EDShortnessOfBreath Time Seen by Provider: 10/08/18 15:06 Hx Obtained From: Patient, Family/Deputy Insurance Commissioner - daughters Onset/Duration: Gradual Onset, Lasting Weeks - 1 week, 10/02/18, Still Present, Worse Since - 10/08/18 Timing: Constant Severity Currently: Moderate Severity Initially: Moderate Location: Pain At: - no pain, only productive cough Aggravating Factor(s): Nothing Alleviating Factor(s): Nothing Associated Signs And Symptoms: Positive: Cough - productive of thick white sputum., Other - SOB; NEG: fever and fatigue Related History: Recent Hospitalization - NSTEMI - Allergies/Home Medications Allergies/Adverse Reactions: Allergies Allergy/AdvReac Type Severity Reaction Status Date / Time No Known Allergies Allergy Verified 10/29/12 16:24 PMH/Surg Hx/FS Hx/Imm Hx Previously Healthy: No Cardiovascular History: Reports: Hx Aneurysm - AAA, Hx Congestive Heart Failure , Hx Coronary Artery Disease - recent NSTEMI , Hx Hypertension, Hx Pacemaker/ICD Respiratory History: Denies: Hx Chronic Obstructive Pulmonary Disease (COPD) Sensory History: Reports: Hx Contacts or Glasses - bifocals (reading and distance), Hx Hearing Aid Opthamlomology History: Reports: Hx Contacts or Glasses - bifocals (reading and distance) Neurological History: Reports: Hx Peripheral Neuropathy, Other Neuro Impairments /Disorders - Parkinson's Psychiatric History: Reports: Hx Anxiety - Cancer History Cancer Type, Location and Year: colon cancer - Surgical History Surgery Procedure, Year, and Place: right carpal tunnel release. left inguinal hernia repair. partial colectomy s/p colon cancer. cardiac stent placement. cardiac catheterization 10/02/18 - Immunization History Date of Tetanus Vaccine: UNKNOWN Infectious Disease History: No Infectious Disease History: Denies: Traveled Outside the [place] in Last 30 Days - Family History Known Family History: Positive: Diabetes - Social History Alcohol Use: None Hx Substance Use: No Substance Use Type: Reports: None Hx Tobacco Use: Yes Smoking Status (MU): Former Smoker Review of Systems Negative: Fever, Fatigue Positive: Other - hard of hearing Cardiovascular: Negative Positive: Shortness Of Breath, Cough Gastrointestinal: Negative Positive: no symptoms reported Skin: Negative Neurological: Negative Psychological: Normal All Other Systems Reviewed And Are Negative: Yes Physical Exam - Summary Physical Exam Summary: Appearance: Well-appearing, no pain distress, resps unlabored, speaks full sentences, afebrile Skin: Warm, color reflects adequate perfusion, dry Head: Normal Head/Face inspection, atraumatic Eyes: Conjunctiva clear ENT: Normal inspection Neck: Supple, no nodes, no JVD Respiratory: Lungs with coarse rhonchi that clear with coughing Cardio: RRR, No murmur, pulses normal, brisk capillary refill Abdomen: Soft, nontender Bowel sounds: Present Musculoskeletal: Strength Intact/ROM intact, no calf tenderness, no edema. Psychological: Normal Neuro: Alert, muscle tone normal, no focal deficit Triage Information Reviewed: Yes Vital Signs On Initial Exam: Initial Vitals Temp Pulse Resp BP Pulse Ox 97.6 F 76 20 99/67 94 10/08/18 14:21 10/08/18 14:21 10/08/18 14:21 10/08/18 14:21 10/08/18 14:21 Vital Signs Reviewed: Yes Diagnostics - Vital Signs Vital Signs Temp Pulse Resp BP Pulse Ox 10/08/18 14:21 97.6 F 76 20 99/67 94 - Laboratory Result Diagrams: 10/08/18 15:41 10/08/18 15:41 Lab Statement: Any lab studies that have been ordered have been reviewed, and results considered in the medical decision making process. - Radiology CXR Radiology Interpretation Completed By: Radiologist Summary of Radiographic Findings: NO ACTIVE CARDIOPULMONARY DISEASE. ED physician has reviewed this report. - EKG 1501 Cardiac Rate: NL - 75 BPM, Other Rate - 100% paced EKG Comparison: No Significant Change - 10/05/18 Summary of EKG Findings: Sinus rhythm 75 BPM. 100% paced. Similar to 10/05/18. ED MD has reviewed and interpreted this EKG. Re-Evaluation - Re-Evaluation First Eval Re-Evaluation Time: 19:07 Change: Improved Comment: Pt clearing secretions better after humidity and NS neb, and sputum induction and albuterol neb given by respiratory therapy. Able to clear secretions better. O2 sats normal and pt is not SOB. No chest pain. Daughters are agreeable to discharge. They will await sputum culture before starting antibiotic if needed. Complex Multi-Symp Course/Dx Course Of Treatment: 88 yo M with recent admission for NSTEMI present with cough and SOB and advised to come to ED by visitng nurse. Pt with no CP. Had cardiac cath on 10/02/18. Pt with Parkinson's disease. Cough preceded NSTEMI admission. Pt without hx COPD, is former smoker. Cough productive of white sputum that is thick and is difficult for pt to clear. Pt is afebrile. Cough also preceded Lisinopril. Pt with hx HTN and recently had doses of metoprolol decreased from 75 to 50mg and Lisinopril decreased from 5mg to 2.5mg. Care discussed with Dr. Lieberman who happens to be in the ED and remembers patient. Patient medications reviewed this visit. Nurses notes reviewed. Care discussed extensively with two daughters and also respiratory therapy, Ray, consulted. An EKG at 15:01 shows sinus rhythm 75 BPM. 100% paced. Similar to 10/05/18. CXR reveals, per radiologist, NO ACTIVE CARDIOPULMONARY DISEASE. Test results with no significant abnormalities except for Hgb 13.0, Hct 40, INR 1.14, BUN 30, BUN/ Creatinine ratio 28.3, glucose 101, ALT < 3, troponin 2.46. (decreased from >77 with NSTEMI 10/02/18) Troponin discussed with Dr. Baugh who is also in the ED , and states this is a good level for recent NSTEMI, and is not indicative of new cardiac event. Aware of troponin 2.46 at 16:11. In the ED course, the patient was given saline neb. He was given acetylcysteine and albuterol and humidified neb, with respiratory therapy consult. Pt was improved after these measures. Pt was still with coarse rhonchi but was able to clear these rhonchi and secretions with cough. Sputum sample was sent. Spoke with Dr. Gautam at 16:12 who recommended that troponin 2.46 is good. Spoke with Dr. Lieberman, hospitalist, at 18:05 who states that she had decreased patients lopressor from 75 mg to 50 mg and lisinopril from [address] Lieberman states that BP 99 systolic is fine for patient. Discussed with Zaira [facility] who stated no contraindication for guaifenesin and Parkinsons disease. Pt given Robitussin 10ml po with improvement. (pure guaifenesin, and guaifensin pills are hard to swallow). Patient feels better and would like to go home. Patient will be discharged home. Patient was given sterile normal saline that he may use with a nebulizer every 4 hours as needed for his cough. A sputum culture was sent to the lab. Patient was prescribed plain guaifenesin syrup that he may take 10ml every four hours as needed for cough. Patient was informed that plain guaifenesin is OK for patients with Parkinson's disease. He was advised that lisinopril can cause cough if his current cough persists. He was instructed to follow up with Dr. Loyd, his primary care provider, on his scheduled appointment on 10/21/18. Patient was instructed to return to ED for new or worsening symptoms. Patient understands and is agreeable to this discharge plan. Daughters are also in agreement. No antibiotics will be given unless sputum culture indicates need for antibiotics. - Diagnoses Provider Diagnoses: Cough, History of heart artery stent, Elevated troponin, Status post non-ST elevation myocardial infarction (NSTEMI), Parkinson disease Discharge - Sign-Out/Discharge Documenting (check all that apply): Patient Departure - Discharge Patient Received Moderate/Deep Sedation with Procedure: No - Discharge Plan Condition: Stable Disposition: HOME Prescriptions: guaiFENesin LIQ* [Robitussin*] 10 ml PO Q4H PRN #600 ml PRN Reason: Cough Patient Education Materials: Acute Cough (ED) Referrals: Chhaya Loyd [Primary Care Provider] - (keep your scheduled appointment for October 21, 2018) Additional Instructions: We have dispensed sterile normal saline that you may use with a nebulizer every 4 hours as needed for his cough. His evaluation for his cough did not show bronchitis, pneumonia or heart failure. We sent a sputum culture and that result should be available in 2-3 days. We will contact you if he will need an antibiotic based on the culture. Dr. Gustafson also prescribed plain guaifenesin syrup that he may take 10ml every four hours as needed for cough. This is also available without a prescription. Be sure there are no other ingredients. Plain guaifenesin is OK for patients with Parkinson's disease. Dr. Lieberman talked with Dr. Gustafson and Dr. Montenegro still agrees with his current high blood pressure medication doses that she decreased. Please remember that lisinopril can cause cough if this cough persists. Please return to the ER if he has any new or worsening symptoms. - Billing Disposition and Condition Condition: STABLE Disposition: Home - Attestation Statements Document Initiated by Gus: Yes Documenting Scribe: Malathi Wilson Provider For Whom Gus is Documenting (Include Credential): Sandra Gustafson MD Scribe Attestation: Malathi Acuna, scribed for Sandra Gustafson MD on 10/09/18 at 1641. Scribe Documentation Reviewed: Yes Provider Attestation: The documentation as recorded by the Malathi casarez accurately reflects the service I personally performed and the decisions made by me, Sandra Gustafson MD Status of Scribe Document: Viewed
[2018-10-08 15:51] LABS: ABS Basophils 0.1 10^3/ul (0-0.2); ABS Eosinophils 0.2 10^3/ul (0-0.6); ABS Lymphocytes 1.1 10^3/ul (1.0-4.8); ABS Monocytes 0.6 10^3/ul (0-0.8); ABS Neutrophils 6.4 10^3/ul (1.5-7.7); Hematocrit 40 % (42-52); Lymphocyte % 13.8 %; Mean Corpuscular HGB Conc 32 g/dL (31-36); Mean Corpuscular Hemoglobin 32 pg (27-31); Mean Corpuscular Volume 100 fL (80-94); Mean Platelet Volume 7.7 fL (7.4-10.4); Platelet Count 219 10^3/uL (150-450); Red Blood Count 4.03 10^6 /uL (4.18-5.48); Red Cell Distribution Width 16 % (10-15); White Blood Count 8.3 10^3/uL (3.5-10.8)
[2018-10-08 15:59] LABS: Activated Partial Thrombo Time 34.1 seconds (26.0-38.0); INR 1.14 (0.82-1.09)
[2018-10-08 16:06] LABS: ALT < 3 U/L (7-52); AST 14 U/L (13-39); Albumin 3.6 g/dL (3.2-5.2); Albumin/Globulin Ratio 1.1 (1-3); Alkaline Phosphatase 73 U/L (34-104); Anion Gap 6 mmol/L (2-11); BUN/Creatinine Ratio 28.3 (8-20); Blood Urea Nitrogen 30 mg/dL (6-24); CO2 Carbon Dioxide 27 mmol/L (22-32); Calcium 9.1 mg/dL (8.6-10.3); Chloride 109 mmol/L (101-111); Creatine Kinase 181 U/L (10-223); EGFR African American 80.2 (>60); EGFR Non-African American 66.2 (>60); Globulin 3.3 g/dL (2-4); Glucose 101 mg/dL (70-100); Magnesium 1.9 mg/dL (1.9-2.7); Sodium 142 mmol/L (135-145); Total Protein 6.9 g/dL (6.4-8.9)
[2018-10-08 16:10] LABS: CKMB ng/mL 3.8 ng/mL (0.6-6.3)
[2018-10-08 16:11] LABS: Troponin I 2.46 ng/mL (<0.04)
[2018-10-08] MEDS ORDERED: Acetylcysteine INHALATION SOL* 200 MG/ML NEB.SOLN 10 ML INH ONE (17:37)
[2018-10-08] MEDS ORDERED: Albuterol 2.5 MG/3 ML NEB.SOL* (0.083%) INH ONE (17:37)
[2018-10-08] MEDS ORDERED: guaiFENesin LIQ* 100 MG/5 ML UDC PO ONE (17:48)
[2018-10-08 18:37] VITALS: BP 144/76
[2018-10-08 18:58] LABS: Troponin I 2.42 ng/mL (<0.04)
--- NOTE | 2018-10-10 13:02 | PN ---
Progress Note - Progress Note Date of Service: 10/08/18 Note: Sputum culture preliminary grew Staphylococcus aureus Patient was placed on clindamycin 3 times daily 5 days Called at 1pm on 10/10/18 and spoke with daughter who agrees to pickle pumper medication Also discussed with Dr. Gustafson who agrees with medications
== END 2018-10-08 20:02 | disposition home or self-care (01) ==
LOC: ED 14:15
DX: R05 Cough (principal); I25.2 Old myocardial infarction; R79.89 Other specified abnormal findings of blood chemistry; G20 Parkinson's disease; Z95.5 Presence of coronary angioplasty implant and graft; C18.9 Malignant neoplasm of colon, unspecified; I50.9 Heart failure, unspecified; I25.10 Atherosclerotic heart disease of native coronary artery without angina pectoris; Z95.810 Presence of automatic (implantable) cardiac defibrillator; Z87.891 Personal history of nicotine dependence; Z22.321 Carrier or suspected carrier of Methicillin susceptible Staphylococcus aureus
CPT/HCPCS: 36415; 71045; 80053; 82550; 82553; 83605; 83735; 83880; 84484; 85025; 85610; 85730; 87070; 87077; 87184; 87186; 87205; 93005; 99283; A9270-GY

== ENCOUNTER 2018-10-12 22:06 | Observation (INO) | payer OTHER ==
--- OUTSIDE RECORDS SUMMARY | 2018-10-12 22:17 | XMS REPORT | Continuity of Care Document ---
:1930 External Reference #:[id number] Author Name Paris Esquivel Care Team Providers Name Role Phone [facility] Primary Care Physician Unavailable Payers Date Identification Numbers Payment Provider Subscriber Effective: 1997 Policy Number: [id number] Medicare Simon Smith PayID: [id number] [address] [place] [address] Effective: 1997 Policy Number: [id number] Medicare Simon Smith Expires: 2018 PayID: [id number] [address] [place] [address] Problems Active Problems Provider Date Parkinson's disease Jen Townsend M.D. 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 Onset: 04/27/2014 Mild cognitive disorder Jen Townsend M.D. Onset: 04/20/2017 Note: MoCA (04/29), (04/30), (06/29) Encounter for planned postprocedural Panda Oneill M.D., [facility], [facility] Onset: wound closure Essential hypertension Panda Oneill M.D., [facility], [facility] Onset: 10/12/2018 Acute subendocardial infarction Panda Oneill M.D., [facility], FSCAI Onset: 2018 Family History Date Family Member(s) Observation Comments Father Unknown Mother Diabetes Social History Type Date Description Comments Sex Unknown Marital Status Lives With Daughter Occupation Retired worked at an [employer] plant ETOH Use Denies alcohol use Tobacco Use Start: Unknown End: Patient is a former quit in 1974 Unknown smoker Recreational Drug Use Denies Drug Use Smoking Status Reviewed: 10/12/18 Patient is a former quit in 1974 smoker Exercise Type/Frequency Does not exercise Allergies, Adverse Reactions, Alerts Description No Known Drug Allergies Medications Active Medications SIG Qnty Indications Ordering Date Provider Clindamycin HCL take 1 capsule by Unknown 10/11/2018 300mg mouth tid x 5 days Capsules Guaifenesin 10 milliliters by Unknown 10/11/2018 100mg/5ML mouth every 4 Liquid hours as needed for cough Aspirin 81 1 by mouth every Unknown 10/05/[address] Atorvastatin Calcium 1 by mouth every Unknown 10/05/2018 day 80mg Tablets Lisinopril 1 by mouth every Unknown 10/05/2018 2.5mg day Tablets Nitroglycerin 1 sl q5mins x3 as Unknown 10/05/2018 0.4mg needed for chest Tablets Sub pain Brilinta 1 tab by mouth Unknown 10/05/2018 90mg Tablets twice a day Amantadine HCL 1 by mouth twice a 90tabs Jen Townsend, 05/04/2014 100mg day M.D. Tablets Tylenol Extra 2 at hs and 2 Unknown Strength during the day prn 500mg Tablets Metoprolol Tartrate 1 by mouth twice a 60tabs Unknown day 25mg Tablets Docusate Sodium 1 by mouth daily Unknown 100mg Capsules Gabapentin take 1 by mouth in 450caps Jen Cary, 300mg in the morning, 1 M.D. Capsules by mouth at noon, and 2 by mouth at bedtime, and 1 at 3am if you wake Carbidopa/Levodopa 2 tabs po q 4 330tabs Unknown hours 25-100mg Tablets Lorazepam take 2 tablet by 30tabs Unknown 0.5mg Tablets mouth daily at bedtime and 1 tab po as needed Carbidopa/Levodopa ER take 1 po hs 360tabs Unknown 50-200mg Tablets ER History Medications Amantadine HCL 1 tab by mouth 60tabs Yesenia Allen NP 03/20/2014 - 100mg every morning 05/04/2014 Tablets and 1 tab by mouth at noon daily Selegiline HCL 1 tab by mouth 90tabs G20 Jen Townsend, 08/08/2013 - 5mg every morning M.D. 12/09/2016 Tablets Ropinirole HCL 2 PO tid 360tabs Jen Townsend, 02/21/2013 - 0.25mg M.D. 11/11/2013 Tablets Sertraline HCL 1 + 1/2 tab 60tabs Jen Townsend, 01/06/2013 - 50mg daily x 2 weeks, M.D. 11/11/2013 Tablets then 2 tabs daily Carbidopa/Levodopa one tab po q 3h 450tabs Jen Townsend, 09/01/2012 - M.D. 10/11/2012 25-250mg Tablets Calcium 1000MG 2 tabs once Unknown - daily 12/10/2016 [id number] Tablets Vitamin D-3 1 by mouth every Unknown - 1000Unit day 12/10/2016 Capsules Proactazyme qd Unknown - 04/15/2016 Colace 1 by mouth every Unknown - 50mg Capsules day 04/15/2016 Klor-Con 1 by mouth every Unknown - 20Meq Packet day 06/10/2018 Ibuprofen 2 PO qd prn 100tabs Unknown - 200mg Tablets 08/19/2015 Xanax one by mouth up 30tabs Unknown - 0.25mg Tablets to three times 05/23/2013 daily as needed for anxiety Tums prn Unknown - 500mg Chewtabs 02/17/2014 Acetaminophen one po prn Unknown - 500mg 02/17/2014 Tablets Mirtazapine 1 tab po qhs prn Unknown - 15mg Tablets 02/21/2013 Omeprazole 1 po prn 90caps Unknown - 40mg Capsules 11/11/2013 DR Ferguson Heartburn 1 tab po in Unknown - Relief liquid prn 06/10/2018 1940-1000mg Tablets Efferv Nitroglycerin apply q 24 hours Unknown - 0.3mg prn 10/08/2018 Patches 24HR Carbidopa/Levodopa 1 po q3am 270tabs Unknown - 10/29/2012 25-100mg Tablets Vital Signs Date Vital Result Comment 10/12/2018 3:28pm Height 66 inches 5'6" Weight 180.00 lb with shoes Heart Rate 72 /min BP Systolic Sitting 110 mmHg Lue, regular cuff BP Diastolic Sitting 75 mmHg Lue, regular cuff BMI (Body Mass Index) 29.0 kg/m2 Ejection Fraction 40% echo 10/03/18 06/11/2018 3:23pm Height 66 inches 5'6" Weight 180.00 lb Heart Rate 76 /min BP Systolic 102 mmHg BP Diastolic 62 mmHg BMI (Body Mass Index) 29.0 kg/m2 09/11/2017 11:41am Height 66 inches 5'6" Weight 180.00 lb Heart Rate 68 /min BP Systolic 100 mmHg 108/62 with small cuff BP Diastolic 58 mmHg 108/62 with small cuff Respiratory Rate 16 /min BMI (Body Mass Index) 29.0 kg/m2 04/20/2017 1:57pm Height 66 inches 5'6" Weight 187.12 lb Heart Rate 72 /min BP Systolic Sitting 112 mmHg BP Diastolic Sitting 68 mmHg Respiratory Rate 15 /min BMI (Body Mass Index) 30.2 kg/m2 12/10/2016 3:00pm Height 66 inches 5'6" Weight 180.00 lb Heart Rate 84 /min BP Systolic Sitting 98 mmHg BP Diastolic Sitting 62 mmHg Respiratory Rate 16 /min BMI (Body Mass Index) 29.0 kg/m2 04/16/2016 2:58pm Height 67 inches 5'7" Weight 194.00 lb Heart Rate 72 /min BP Systolic Sitting 114 mmHg BP Diastolic Sitting 78 mmHg Respiratory Rate 14 /min BMI (Body Mass Index) 30.4 kg/m2 08/20/2015 11:22am Height 67 inches 5'7" Weight 189.38 lb Heart Rate 80 /min BP Systolic Sitting 122 mmHg BP Diastolic Sitting 60 mmHg Respiratory Rate 16 /min BMI (Body Mass Index) 29.7 kg/m2 02/21/2015 2:29pm Height 67 inches 5'7" Weight 187.00 lb Heart Rate 68 /min BP Systolic Sitting 124 mmHg BP Diastolic Sitting 72 mmHg Respiratory Rate 16 /min BMI (Body Mass Index) 29.3 kg/m2 11/01/2014 2:53pm Height 67 inches 5'7" Weight 179.00 lb Heart Rate 76 /min BP Systolic Sitting 130 mmHg BP Diastolic Sitting 76 mmHg Respiratory Rate 16 /min BMI (Body Mass Index) 28.0 kg/m2 05/18/2014 3:07pm Height 67 inches 5'7" Weight 184.00 lb Heart Rate 76 /min BP Systolic Sitting 102 mmHg BP Diastolic Sitting 62 mmHg Respiratory Rate 16 /min BMI (Body Mass Index) 28.8 kg/m2 04/27/2014 3:43pm Height 67 inches 5'7" Weight 186.00 lb Heart Rate 72 /min BP Systolic Sitting 108 mmHg BP Diastolic Sitting 68 mmHg Respiratory Rate 16 /min BMI (Body Mass Index) 29.1 kg/m2 02/27/2014 3:25pm Height 67 inches 5'7" Weight 183.50 lb Heart Rate 80 /min BP Systolic Sitting 110 mmHg BP Diastolic Sitting 70 mmHg Respiratory Rate 16 /min BMI (Body Mass Index) 28.7 kg/m2 11/16/2013 3:30pm Height 67 inches 5'7" Weight 188.00 lb Heart Rate 88 /min BP Systolic Sitting 130 mmHg BP Diastolic Sitting 70 mmHg Respiratory Rate 20 /min BMI (Body Mass Index) 29.4 kg/m2 08/08/2013 2:23pm Height 67 inches 5'7" Weight 175.00 lb Heart Rate 67 /min BP Systolic Sitting 118 mmHg BP Diastolic Sitting 70 mmHg Respiratory Rate 16 /min BMI (Body Mass Index) 27.4 kg/m2 05/23/2013 1:33pm Heart Rate 72 /min BP Systolic Sitting 110 mmHg BP Diastolic Sitting 70 mmHg Respiratory Rate 16 /min 02/21/2013 2:23pm Heart Rate 79 /min BP Systolic Sitting 116 mmHg BP Diastolic Sitting 68 mmHg Respiratory Rate 20 /min 10/29/2012 2:28pm Height 67 inches 5'7" Weight 160.00 lb Heart Rate 52 /min BP Systolic Sitting 138 mmHg BP Diastolic Sitting 70 mmHg Respiratory Rate 12 /min BMI (Body Mass Index) 25.1 kg/m2 09/01/2012 10:23am Heart Rate 66 /min Irregular BP Systolic Sitting 120 mmHg BP Diastolic Sitting 60 mmHg Respiratory Rate 18 /min Results Test Date Facility Test Result H/L Range Note Laboratory test 10/02/2018 [facility] Poc Activated 284 seconds [address] [place] [address] [phone] 1 Reclamation Engineer: [id number] Reference Range: 74-125 seconds Procedures Date Code Description Status 10/12/2018 40716 EKG Tracing & Interpretation Completed 10/03/2018 89043 ECHO Transthorasic Realtime 2D W Doppler & Color Flow Hosp Completed 10/02/2018 83109 Cath PLMT&NJX L Ventriculog Img S&I Completed 10/02/2018 32194 Percutaneous Transcatheter Placement Of Intracoronary Completed Stent 05/18/2014 83854 Nerve Conduction 05-06 Studies Completed 04/27/2014 93120 Nerve Conduction 05-06 Studies Completed 04/27/2014 91831 Needle Electromyography Each Extremity W/Related Completed Paraspinal Areas 06/17/2013 48816 EEG Recording Awake & Drowsy Completed 11/03/2012 77845 Holter Monitor Review (24 hr)dr review & interp only Completed Encounters Type Date Location Provider Dx Diagnosis Office Visit 10/05/2018 [facility] Lo Huynh, I21.4 Non-St elevation 11:57a Of [facility] AT [facility] VALET SERVICE ATTENDANT (Nstemi) myocardial infarction I25.10 [facility] [place] coronary artery w/o ang pctrs I25.5 Ischemic cardiomyopathy I71.4 Abdominal aortic aneurysm, without rupture E87.6 Hypokalemia Office Visit 10/02/2018 11:56a [facility] Panda Oneill, R07.9 Chest pain, Of [facility] AT [facility] M.D., FACC, unspecified FSCAI R79.89 Other specified abnormal findings of blood chemistry I25.10 [facility] heart disease [place] coronary artery w/o ang pctrs Office Visit 06/11/2018 3:30p [facility] Bello Romo [facility] M.D. disease R53.1 Weakness G31.84 Mild cognitive impairment, so stated Office Visit 09/11/2017 11:30a [facility]ello [facility] M.D. disease G31.84 Mild cognitive impairment, so stated G60.8 Other hereditary and idiopathic neuropathies Office Visit 04/20/2017 2:00p [facility] Jen Vinitay, G20 [facility] [employer] M.D. disease G31.84 Mild cognitive impairment, so stated Office Visit 12/10/2016 3:00p [facility] Jen Cowdery, G20 [facility] [employer] M.D. disease Office Visit 04/16/2016 2:45p [facility] Jen Vinitay, G60.8 Other hereditary Services Of [employer] M.D. and idiopathic neuropathies G20 Parkinson's disease G31.84 Mild cognitive impairment, so stated Office Visit 08/20/2015 11:00a [facility] Jen Cary, G60.8 Other hereditary Services Of [employer] M.D. and idiopathic neuropathies G20 Parkinson's disease Office Visit 02/21/2015 2:30p [facility] Jeniron Townsend, G60.8 Other hereditary Services Of [employer] M.D. and idiopathic neuropathies G20 Parkinson's disease Office Visit 11/01/2014 2:45p [facility] Jen Cowdery, 356.8 Neuropathy Other Services Of [employer] M.D. Spec Idiopathic Peripheral 354.0 Carpal Tunnel Syndrome 332.0 Paralysis Agitans Office Visit 05/18/2014 3:00p [facility] Jen Cowdery, 356.8 Neuropathy Other Services Of [employer] M.D. Spec Idiopathic Peripheral 354.0 Carpal Tunnel Syndrome 332.0 Paralysis Agitans Office Visit 04/27/2014 3:00p [facility] Jen Vinitay, 356.8 Neuropathy Other Services Of [employer] M.D. Spec Idiopathic Peripheral 356.8 Neuropathy Other Spec Idiopathic Peripheral 354.0 Carpal Tunnel Syndrome 332.0 Paralysis Agitans Office Visit 02/27/2014 3:15p [facility] Jen Cowdery, 332.0 Paralysis Services Of [employer] M.D. Agitans 780.4 Dizziness & Giddiness 300.00 Anxiety State Unspec 782.0 Skin Sensation Disturbance 536.8 Stomach Dyspepsia & Other Spec Disorders Of Function Office Visit 11/16/2013 3:00p [facility] Jen Cowdery, 332.0 Paralysis Services Of [employer] M.D. Agitans 728.87 Muscle Weakness Generalized 780.4 Dizziness & Giddiness Office Visit 08/08/2013 2:15p [facility] Jeniron Lindquistjohanay, 332.0 Paralysis Services Of [employer] Casper.eDz. Elos 728.87 Muscle Weakness Generalized 780.4 Dizziness & Giddiness 300.00 Anxiety State Unspec Office Visit 05/23/2013 1:15p [facility] Jen Vinitay, 332.0 Paralysis Services Of Radha Shirley.D. Bongitans 780.97 Altered Mental Status Office Visit 02/21/2013 2:15p [facility] Jen Cowdery, 332.0 Paralysis Services Of Radha Shirley.D. Agitans 300.00 Anxiety State Unspec 719.49 Pain Joint Multiple Sites Office Visit 01/06/2013 3:45p [facility] Jen Cowjohanay, 332.0 Paralysis Services Of Radha Shirley.D. Bongitans 300.00 Anxiety State Unspec Office Visit 10/29/2012 2:30p [facility] Jen Townsend, 332.0 Paralysis Services Of Radha Shirley.D. Bongitans 780.97 Altered Mental Status 728.87 Muscle Weakness Generalized 784.0 Headache Office Visit 09/01/2012 10:00a [facility] Jen Townsend, 332.0 Paralysis Services Of aRdha Shirley.Soni Gascas Plan of Treatment Future Appointment(s):12/10/2018 1:00 pm - Jen Townsend M.D. at [facility]10/12/2018 - Panda Oneill M.D., [facility], CESUCC98.1 Encounter for planned postprocedural wound closureComments:Your catheterization site appears to be healing well.Follow up:1-2 weeksRecommendations:Continue current medications and we will set up a primary passenger vessel chef here at the [facility].I21.4 Non-St elevation ( Nstemi) myocardial infarctionComments:You currently are stable with no symptoms of your coronary artery disease.Recommendations:Continue current [id number] Essential (primary) hypertensionComments:Your blood pressure is currently under good controlRecommendations:Continue current medications and follow up with your primary passenger vessel chef.
--- NOTE | 2018-10-12 22:26 | ED ---
HPI Chest Pain - HPI Summary HPI Summary: This patient is an 88 year old male accompanied by his daughter presenting to [facility] with a chief complaint of chest pain since 6 hours ago. He saw his primary physician earlier today and felt fine but now feels a chest pressure that radiates to his back. He also reports diaphoresis. His daughter states his symptoms were at its worst 2 hours ago and then improved. He states his chest pressure has resolved. The patient denies SOB. His daughter states she sometimes complains about chest pressure upon exertion. Carbidopa/Levodop 25/100 MG(*) [Sinemet 25/100 TAB(*)] 2 tab PO 0930,1330,1730 06/10/14 [History Confirmed 10/02/18] LORazepam TAB(*) [Ativan 0.5 MG TAB (*)] 0.5 mg PO BEDTIME PRN 06/10/14 [ History Confirmed 10/02/18] Amantadine CAP* [Symmetrel CAP*] 100 mg PO 0800,1500 10/01/18 [History Confirmed 10/02/18] Carbidopa/Levodop CR 50/200(*) [Sinemet CR 50/200(*)] 1 tab.cr PO 199910/01/18 [History Confirmed 10/02/18] Docusate Sodium [Colace] 100 mg PO DAILY 10/01/18 [History Confirmed 10/01/18] Gabapentin CAP(*) [Neurontin 300 CAP(*)] 300 mg PO 0730,1400,2100 10/01/18 [ History Confirmed 10/02/18] Metoprolol Tartrate [Lopressor] 50 mg PO BID 10/01/18 [History Confirmed ] Acetaminophen [Tylenol] 650 mg PO 209910/02/18 [History Confirmed 10/02/18] Aspirin 81 mg CHEW TAB* 81 mg PO DAILY #30 tab 10/05/18 [Rx] Aspirin 81 mg CHEW TAB* 81 mg PO DAILY #30 tab 10/05/18 [Rx] Atorvastatin* [Lipitor 80 MG*] 80 mg PO DAILY #30 tab 10/05/18 [Rx] Atorvastatin* [Lipitor 80 MG*] 80 mg PO DAILY@0730 #30 tab 10/05/18 [Rx] Lisinopril [Lisinopril 2.5 MG-] 2.5 mg PO DAILY #30 tab 06/25/19 [Rx] Lisinopril [Lisinopril 2.5 MG-] 2.5 mg PO DAILY #30 tab 10/05/18 [Rx] Nitroglycerin TAB 0.4 MG* 0.4 mg SL Q5M PRN #30 tab 10/05/18 [Rx] Nitroglycerin TAB 0.4 MG* 0.4 mg SL Q5M PRN #30 tab 10/05/18 [Rx] Ticagrelor* [Brilinta 90 MG*] 90 mg PO BID #60 tab 10/05/18 [Rx] guaiFENesin LIQ* [Robitussin*] 10 ml PO Q4H PRN #600 ml 10/08/18 [Rx] Clindamycin Cap(NF) [Clindamycin Cap 300 mg Cap(NF)] 300 mg PO TID #15 cap 10/10 [Rx] - History of Current Complaint Time Seen by Provider: 10/12/18 22:17 Hx Obtained From: Patient Onset/Duration: Started Hours Ago Timing: Constant Pain Intensity: 0 Pain Scale Used: 0-10 Numeric Chest Pain Radiates To:: Back Aggravating Factor(s): Exertion Associated Signs and Symptoms: Positive: Chest Pain, Diaphoresis. Negative: Shortness of Breath - Additional Pertinent History Primary Care Physician: JENNIFER - Allergy/Home Medications Allergies/Adverse Reactions: Allergies Allergy/AdvReac Type Severity Reaction Status Date / Time No Known Allergies Allergy Verified 10/12/18 22:20 PMH/Surg Hx/FS Hx/Imm Hx Cardiovascular History: Reports: Hx Aneurysm - AAA, Hx Congestive Heart Failure , Hx Coronary Artery Disease - recent NSTEMI , Hx Hypertension, Hx Pacemaker/ICD Respiratory History: Denies: Hx Asthma, Hx Chronic Obstructive Pulmonary Disease (COPD) GI History: Reports: Other GI Disorders - colon cancer s/p colectomy Sensory History: Reports: Hx Contacts or Glasses - bifocals (reading and distance), Hx Hearing Aid Opthamlomology History: Reports: Hx Contacts or Glasses - bifocals (reading and distance) Neurological History: Reports: Hx Nerve Disease - peripheral neuropathy, Hx Peripheral Neuropathy, Other Neuro Impairments/Disorders - Parkinson's Psychiatric History: Reports: Hx Anxiety - Cancer History Cancer Type, Location and Year: colon cancer - Surgical History Surgery Procedure, Year, and Place: right carpal tunnel release. left inguinal hernia repair. partial colectomy s/p colon cancer. cardiac stent placement. cardiac catheterization 10/02/18 - Immunization History Date of Tetanus Vaccine: UNKNOWN Infectious Disease History: Denies: Traveled Outside the [place] in Last 30 Days - Family History Known Family History: Positive: Diabetes - Social History Alcohol Use: None Hx Substance Use: No Substance Use Type: Reports: None Hx Tobacco Use: Yes Smoking Status (MU): Former Smoker Review of Systems Positive: Skin Diaphoresis Positive: Chest Pain Negative: Shortness Of Breath All Other Systems Reviewed And Are Negative: Yes Physical Exam - Summary Physical Exam Summary: VITAL SIGNS: Reviewed. GENERAL: Patient is a well-developed and nourished MALE who is lying comfortable in the stretcher. Patient is not in any acute respiratory distress. HEAD AND FACE: No signs of trauma. No ecchymosis, hematomas or skull depressions. No sinus tenderness. EYES: PERRLA, EOMI x 2, No injected conjunctiva, no nystagmus. EARS: Hearing grossly intact. Ear canals and tympanic membranes are within normal limits. MOUTH: Oropharynx within normal limits. NECK: Supple, trachea is midline, no adenopathy, no JVD, no carotid bruit, no c- spine tenderness, neck with full ROM CHEST: Symmetric, no tenderness at palpation LUNGS: Clear to auscultation bilaterally. No wheezing or crackles. Decreased breath sounds bilaterally. CVS: Regular rate and rhythm, S1 and S2 present, no murmurs or gallops appreciated. ABDOMEN: Soft, non-tender. No signs of distention. No rebound no guarding, and no masses palpated. Bowel sounds are normal. EXTREMITIES: FROM in all major joints, no edema, no cyanosis or clubbing. NEURO: Alert and oriented x 3. No acute neurological deficits. Speech is normal and follows commands. SKIN: Dry and warm Triage Information Reviewed: Yes Vital Signs On Initial Exam: Temp Pulse Resp BP Pulse Ox 97.4 F 84 16 122/60 94 10/12/18 22:10 10/12/18 22:10 10/12/18 22:10 10/12/18 22:10 10/12/18 22:10 Vital Signs Reviewed: Yes Diagnostics - Laboratory Result Diagrams: 10/12/18 22:37 10/12/18 22:37 Lab Statement: Any lab studies that have been ordered have been reviewed, and results considered in the medical decision making process. - Radiology CXR Radiology Interpretation Completed By: ED Physician Summary of Radiographic Findings: No acute process. Pending official radiologist report. - EKG 2210 Cardiac Rate: NL - 84 BPM Summary of EKG Findings: Paced rhythm at 84 BPM Chest Pain Course/Dx - Course Course Of Treatment: This patient is an 88 year old male accompanied by his daughter presenting to [facility] with a chief complaint of chest pain since 6 hours ago. EKG and CXR were unremarkable for acute cardiopulmonary problems. Dr. Cordova , Hospitalist, accepted the patient for admission/observation. A plan for admission was discussed with the patient and he as agreeable with this plan. - Diagnoses Provider Diagnoses: Chest pain Discharge - Sign-Out/Discharge Documenting (check all that apply): Patient Departure - Admission - Discharge Plan Condition: Stable Disposition: ADMITTED TO [facility] Referrals: Chhaya Loyd [Primary Care Provider] - - Attestation Statements Document Initiated by Scribe: Yes Documenting Scribe: Rashard Angel Provider For Whom Gus is Documenting (Include Credential): Leeroy Miles MD Scribe Attestation: Rashard Acuna scribed for Leeroy Miles MD on 10/12/18 at 2341. Status of Scribe Document: Ready
[2018-10-12 22:55] LABS: ABS Eosinophils 0.2 10^3/ul (0-0.6); ABS Lymphocytes 1.1 10^3/ul (1.0-4.8); ABS Monocytes 0.9 10^3/ul (0-0.8); ABS Neutrophils 7.9 10^3/ul (1.5-7.7); Eosinophil % 1.6 %; Hematocrit 40 % (42-52); Hemoglobin 13.3 g/dL (14.0-18.0); Mean Corpuscular HGB Conc 33 g/dL (31-36); Mean Corpuscular Hemoglobin 33 pg (27-31); Mean Corpuscular Volume 98 fL (80-94); Mean Platelet Volume 8.4 fL (7.4-10.4); Nucleated Red Blood Cells % 0.1; Platelet Count 227 10^3/uL (150-450); Red Blood Count 4.09 10^6 /uL (4.18-5.48); Red Cell Distribution Width 15 % (10-15)
[2018-10-12 23:02] LABS: Activated Partial Thrombo Time 33.1 seconds (26.0-38.0); INR 1.26 (0.82-1.09)
[2018-10-12 23:06] LABS: ALT < 3 U/L (7-52); AST 8 U/L (13-39); Albumin 3.4 g/dL (3.2-5.2); Alkaline Phosphatase 69 U/L (34-104); Anion Gap 8 mmol/L (2-11); Blood Urea Nitrogen 28 mg/dL (6-24); CO2 Carbon Dioxide 26 mmol/L (22-32); Calcium 9.3 mg/dL (8.6-10.3); Chloride 107 mmol/L (101-111); EGFR African American 85.7 (>60); EGFR Non-African American 70.8 (>60); Globulin 3.5 g/dL (2-4); Glucose 104 mg/dL (70-100); Magnesium 1.8 mg/dL (1.9-2.7); Potassium 3.9 mmol/L (3.5-5.0); Sodium 141 mmol/L (135-145); Total Protein 6.9 g/dL (6.4-8.9)
[2018-10-12 23:19] LABS: Troponin I 0.34 ng/mL (<0.04)
[2018-10-13] MEDS ORDERED: LORazepam TAB(*) 0.5 MG PO PRN (01:40)
[2018-10-13] MEDS ORDERED: Nitroglycerin TAB 0.4 MG* 0.4 MG TAB SL PRN (01:40)
[2018-10-13] MEDS ORDERED: guaiFENesin LIQ* 100 MG/5 ML UDC PO PRN (01:40)
--- NOTE | 2018-10-13 01:58 | HP ---
History of Present Illness - History of Present Illness Reason for Visit: Chest Pressure History of Present Illness: Mr. Smith is an 88-year-old male with a past medical history Hypertension, Parkinson's disease, Peripheral neuropathy, Anxiety, Abdominal aortic aneurysm, Status post pacemaker, Recent NSTEMI s/p Bare-metal stent to Left circumflex on 10/02/2018 came in to ER due to chest pressure. Patient went for his follow up visit to his airconditioning engineer on his return home noted to have chest pressure which lasted from 430PM to 830PM however it resolved without any treatment by the time daughter brought him to ER. In ER patient is pain free. - Past Medical History Cardiac: CAD - Non-ST elevation myocardial infarction, status post bare-metal stent to the left circumflex., HTN DIGITAL ASSISTANT: Peripheral neuropathy, Other - Parkinson Psych: Anxiety Infectious Disease: Other - Recently being treated for Staph bronchitis on day 3 /5 of clindamycin. - Past Surgical History Past Surgical History: Cataract Removal - Bilateral., Hernia Repair - Left inguinal., Other - Right Carpal Tunnel release, Partial colectomy for Colon Ca, Pace maker insertion. - Past Family History Family History: DM - Mom - Past Social History Smoke: Quit - 15Pack year Hx quit in 1974 Occupation: Worked in [employer] Alcohol: None Drugs: None Review of Systems - Review of Systems Constitutional: Negative: Fever Eyes: Negative: Vision Change ENT: Negative: Ear Pain Respiratory: Positive: Cough. Negative: Shortness of Breath Cardiovascular: Positive: Chest Pain - More of pressure. Gastrointestinal: Negative: Nausea, Vomiting Musculoskeletal: Negative: Neck Pain Neurological: Negative: Weakness, Numbness - Medications/Allergies Allergies/Adverse Reactions: Allergies Allergy/AdvReac Type Severity Reaction Status Date / Time No Known Allergies Allergy Verified 10/12/18 22:20 Medications: Current Medications Acetaminophen (Tylenol Tab*) 650 mg PO 2100 [facility] Amantadine HCl (Symmetrel Cap*) 100 mg PO 0800,1500 [facility] Aspirin (Aspirin 81 Mg Chew Tab*) 81 mg PO DAILY [facility] Atorvastatin Calcium (Lipitor*) 80 mg PO DAILY [facility] Carbidopa/Levodopa (Sinemet 25/100 Tab(*)) 2 tab PO 0930,1330,1730 [facility] Carbidopa/Levodopa (Sinemet Cr 50/200(*)) 1 tab.cr PO 2000 [facility] Clindamycin HCl (Cleocin 300 Mg Cap(Nf)) 300 mg PO TID [facility] Docusate Sodium (Colace Cap*) 100 mg PO DAILY [facility] Enoxaparin Sodium (Lovenox(*)) 30 mg SUBCUT Q24H [facility] Gabapentin (Neurontin Cap(*)) 300 mg PO 0730,1400,2100 [facility] Guaifenesin (Robitussin*) 10 ml PO Q4H PRN PRN Reason: COUGH Lisinopril (Prinivil Tab*) 2.5 mg PO DAILY [facility] Lorazepam (Ativan Tab(*)) 0.5 mg PO BEDTIME PRN PRN Reason: ANXIETY Metoprolol Tartrate (Lopressor Tab*) 50 mg PO BID [facility] Nitroglycerin (Nitroglycerin Tab 0.4 Mg*) 0.4 mg SL Q5M PRN PRN Reason: Chest pain Ticagrelor (Brilinta*) 90 mg PO BID [facility] Exam - Exam Vital Signs: Vital Signs (72 hours) 10/12/18 10/12/18 10/12/18 22:10 22:21 22:23 Temperature 97.4 F Pulse Rate 84 Respiratory 16 14 18 Rate Blood Pressure 122/60 108/75 (mmHg) O2 Sat by Pulse 0 Oximetry 10/12/18 10/12/18 10/12/18 23:00 23:15 23:17 Temperature Pulse Rate 77 77 Respiratory 25 23 26 Rate Blood Pressure 105/60 (mmHg) O2 Sat by Pulse 93 92 Oximetry 10/12/18 10/12/18 10/13/18 23:22 23:53 00:00 Temperature Pulse Rate 73 Respiratory 26 23 23 Rate Blood Pressure 98/57 96/69 (mmHg) O2 Sat by Pulse 93 Oximetry 10/13/18 10/13/18 00:23 00:52 Temperature Pulse Rate 75 Respiratory 25 20 Rate Blood Pressure 110/48 105/56 (mmHg) O2 Sat by Pulse 92 Oximetry General: Oriented x3, No acute distress Lungs: Clear to auscultation Cardiovascular: Regular rate Abdomen: Normal bowel sounds, Soft, No tenderness Extremities: No edema Skin: No rashes Assessment/Plan - Assessment/Plan Assessment: Mr. Smith is an 88-year-old male with a past medical history Hypertension, Parkinson's disease, Peripheral neuropathy, Anxiety, Abdominal aortic aneurysm, Status post pacemaker, Recent NSTEMI s/p Bare-metal stent to Left circumflex on 10/02/2018 came in admitted for chest pressure. Chest Pressure r/o in-stent stenosis. Hx of HTN Hx of Parkinson's Hx of Anxiety S/P Pace Maker Plan: Will follow up serial troponin's. If down trending will consider discharge home. Restart rest of home medication including the clindamycin for his Staph bronchitis. DVT PPx with Lovenox. Objective Vital Signs: Temp Pulse Resp BP Pulse Ox 97.4 F 75 20 105/56 92 10/12/18 22:10 10/13/18 00:23 10/13/18 00:52 10/13/18 00:52 10/13/18 00:23 Laboratory Results: 10/12/18 22:37 10/12/18 22:37 INR (Anticoag Therapy) 1.26 (0.82-1.09) H 10/12/18 22:37 APTT 33.1 seconds (26.0-38.0) 10/12/18 22:37 Total Bilirubin 0.60 mg/dL (0.2-1.0) 10/12/18 22:37 AST 8 U/L (13-39) L 10/12/18 22:37 ALT < 3 U/L (7-52) L 10/12/18 22:37 Alkaline Phosphatase 69 U/L (34-104) 10/12/18 22:37 B-Natriuretic Peptide 179 pg/mL (<=100) H 10/12/18 22:38 Total Protein 6.9 g/dL (6.4-8.9) 10/12/18 22:37 Albumin 3.4 g/dL (3.2-5.2) 10/12/18 22:37 Globulin 3.5 g/dL (2-4) 10/12/18 22:37 Albumin/Globulin Ratio 1.0 (1-3) 10/12/18 22:37 10/12/18 10/13/18 22:37 01:20 Troponin I 0.34 H* 0.32 H* Diagnostic Imaging: CXR official read pending. Pacemaker noted. No evidence of pulmonary congestion or infiltrate. EKG Data: Paced rhythm when compared to his old EKG 10/08/2018 no significant change.
[2018-10-13 02:05] LABS: Troponin I 0.32 ng/mL (<0.04)
[2018-10-13 05:06] LABS: Troponin I 0.32 ng/mL (<0.04)
[2018-10-13] MEDS ORDERED: Amantadine CAP* 100 MG PO SCH (08:00)
[2018-10-13] MEDS: Clindamycin CAP* 150 MG PO SCH ×2 (08:38→13:48)
[2018-10-13] MEDS: Carbidopa/Levodop 25/100 MG TAB(*) PO SCH ×2 (08:52→13:48)
[2018-10-13] MEDS: Gabapentin CAP(*) 300 MG PO SCH ×2 (08:56→13:49)
[2018-10-13] MEDS ORDERED: Docusate CAP* 100 MG PO SCH (09:00)
[2018-10-13] MEDS ORDERED: Lisinopril TAB* 5 MG PO SCH (09:00)
[2018-10-13] MEDS ORDERED: Aspirin 81 mg CHEW TAB* 81 MG TAB.CHEW PO SCH (09:00)
[2018-10-13] MEDS ORDERED: Atorvastatin* 80 MG TAB PO SCH (09:00)
[2018-10-13] MEDS ORDERED: Ticagrelor* 90 MG TAB PO SCH (09:00)
[2018-10-13] MEDS ORDERED: Enoxaparin(*) 30 MG/0.3 ML SYR SUBCUT SCH (09:00)
[2018-10-13] MEDS ORDERED: Metoprolol Tartrate TAB* 50 mg PO SCH (09:00)
[2018-10-13 12:12] VITALS: BP 100/48
[2018-10-13] MEDS ORDERED: Carbidopa/Levodop CR 50/200(*) TAB.CR PO SCH (20:00)
[2018-10-13] MEDS ORDERED: Acetaminophen TAB* 325 MG PO SCH (21:00)
--- NOTE | 2018-10-13 21:53 | DS ---
CC: Chhaya Loyd NP, [place]; Anthony Alejandre NP, [facility] [place] * DISCHARGE SUMMARY: DATE OF ADMISSION: 10/13/18 DATE OF DISCHARGE: 10/13/18 PRIMARY CARE PROVIDER: Chhaya Loyd NP, at [place]. DISCHARGE DIAGNOSIS: Chest pressure, acute coronary syndrome, ruled out. SECONDARY DIAGNOSES: 1. Recent admission for non-ST elevation myocardial infarction, status post bare- metal stent to the left circumflex. 2. Ischemic cardiomyopathy with ejection fraction of 40%. 3. Hypertension. 4. Parkinson disease. 5. Peripheral neuropathy. 6. Anxiety. 7. Hypertension. 8. Abdominal aortic aneurysm. 9. Status post pacemaker. 10. Colon cancer, status post resection. MEDICATION LIST: 1. Acetaminophen 650 mg p.o. at bedtime. 2. Amantadine 100 mg p.o. b.i.d. 3. Aspirin 81 mg p.o. daily. 4. Atorvastatin 80 mg p.o. daily. 5. Carbidopa/levodopa 25/100 mg 2 tablets p.o. at 9:30, 1:30, and 5:30. 6. Carbidopa/levodopa CR 50/200 one tablet p.o. at 8 p.m. 7. Clindamycin 300 mg p.o. t.i.d. 8. Colace 100 mg p.o. daily. 9. Gabapentin 300 mg p.o. at 7:30, 2, and 9 p.m. 10. Guaifenesin 10 mL p.o. q.4 hours p.r.n. cough. 11. Lisinopril 2.5 mg p.o. daily. 12. Lorazepam 0.5 mg p.o. at bedtime as needed for anxiety. 13. Metoprolol tartrate 50 mg p.o. b.i.d. 14. Nitroglycerin 0.4 mg p.o. sublingual q.5 minutes p.r.n. chest pain, maximum 3 doses. 15. Ticagrelor 90 mg p.o. b.i.d. HOSPITAL COURSE: Mr. Smith is an 88-year-old male with a past medical history as stated above that presented to the emergency room with complaints of chest pressure. The patient was initially admitted on October 02 with complaint of chest pain. He was found to have a non-ST elevation VT and received a bare- metal stent to the left circumflex. He was discharged home on October 05 and has had multiple visits to the ED since discharge with complaints of shortness of breath, cough, and yesterday he returned with chest pressure. He went to see Dr. Oneill for his scheduled followup and he states that he was feeling well , but when he got in the car to return to home, he started to have chest pressure. He states that this feeling was different from what he felt on his prior admission. For more details about his presentation, I refer you to his history and physical. His pacemaker revealed only paced rhythm and his troponins were 0.34, 0.32, and 0.32. After reviewing the symptoms with the patient and his family, it is possible that his pain was musculoskeletal in nature, as he had to get into a very low car and had to hold to the door to lower himself, but other possibility when combined with his complaints of shortness of breath is that his symptoms could be related to Brilinta. I discussed the case with Cardiology on-call (Dr. Quevedo) and she agreed that the patient could try caffeine ingestion to help with his symptoms. His family also states that he has been very anxious and this is a normal reaction since he had a recent myocardial infarction that every differences in his chest, he is concerned that it could be related to his heart disease. They were reassured that his cardiac enzymes continued to trend down for his peek troponin of 79 on his prior admission. He was advised that if he experienced mild symptoms like yesterday that he could try nitroglycerin to see if it relieves the pressure. Of note, it is the fact that the patient had the Nitro patch prior to his heart attack, but that had been discontinued because he did not have enough blood pressure for a beta-juan pablo and HUMBERTO inhibitor and a Nitro patch. If his symptoms persist, then he has to use his sublingual nitroglycerin more frequently maybe his Nitro patch could be resumed, but he probably need a lower dose of beta- juan pablo to allow for it to happen. The patient is medically stable to be discharged at this time. He was advised to keep his appointment with Chhaya Loyd next week, and the patient and his daughter were educated about signs and symptoms that would prompt his return to the emergency room. PHYSICAL EXAMINATION: Vital Signs: Temperature 97.9, heart rate 69, respiratory rate 16, oxygen saturation 96% on room air, blood pressure is 100/ 48. General: The patient is a pleasant elderly gentleman, sitting up in bed, in no acute distress. CVS: S1, S2. Regular rate and rhythm. Chest: Breath sounds present bilaterally with no added sounds. Neuro: He is alert and oriented x3. Able to move all 4 extremities. DIET: Heart healthy diet. ACTIVITIES: As tolerated. DISPOSITION: To home. STATUS WHILE IN THE HOSPITAL: Observation. CONDITION AT THE TIME OF DISCHARGE: Fair. Please keep in mind that this is a summarized version of this patient's hospital stay. If you need more information, please feel free to call me at [phone] or please obtain full medical records. TIME SPENT: Approximately 45 minutes was spent to complete this discharge. [id number]/CPS #: [id number] MTDD
== END 2018-10-13 14:05 | disposition home or self-care (01) ==
LOC: ED 22:06 → MEDTELE 10-13 01:43
PROVIDERS: ADMIT Internal Medicine; ATTEND Internal Medicine
DX: R07.89 Other chest pain (principal); I25.2 Old myocardial infarction; I25.5 Ischemic cardiomyopathy; I10 Essential (primary) hypertension; G20 Parkinson's disease; G62.9 Polyneuropathy, unspecified; F41.9 Anxiety disorder, unspecified; I71.4 Abdominal aortic aneurysm, without rupture; Z95.0 Presence of cardiac pacemaker; Z85.038 Personal history of other malignant neoplasm of large intestine; Z90.49 Acquired absence of other specified parts of digestive tract; Z79.82 Long term (current) use of aspirin; Z87.891 Personal history of nicotine dependence; Z79.899 Other long term (current) drug therapy; R05 Cough
CPT/HCPCS: 36415; 71045; 80053; 83735; 83880; 84484; 85025; 85610; 85730; 93005; 96372; 99284; A9270-GY; G0378; J1650